=== PATIENT | male | born 1965 | race American Indian/Alaskan Native ===

== ENCOUNTER 2021-08-09 01:00 | Inpatient (IN) | payer SELFPAY ==
[2021-08-09] MEDS ORDERED: ONDANSETRON 4 MG/2 ML INJ IV ONE (02:27)
[2021-08-09] MEDS ORDERED: FAMOTIDINE 20 MG/2 ML INJ IV ONE (02:27)
[2021-08-09] MEDS ORDERED: MORPHINE 4 MG/1 ML INJ IV ONE (02:27)
[2021-08-09] MEDS ORDERED: THIAMINE 100 MG, FOLIC ACID 1 MG, MULTIPLE VITAMIN INJ, ADULT 10 ML in SODIUM CHLORIDE ... IV ONE (02:28)
[2021-08-09] MEDS ORDERED: SODIUM CHLORIDE 0.9% 1000 ML 1,000 ML ONE (02:32)
--- NOTE | 2021-08-09 02:32 | Emergency Department Report ---
ED Abdominal Pain HPI - General Chief Complaint: Alcohol Stated Complaint: ALCOHOL WITHDRAWAL Time Seen by Provider: 08/09/21 02:06 Source: EMS Mode of arrival: Stretcher Limitations: No Limitations - History of Present Illness Initial Comments: 55-year-old male with a past medical history hypertension and alcohol abuse presents to the hospital with complaints of "alcohol withdrawal symptoms." Patient states he drinks a half a gallon of vodka daily with last drink at 3 AM. Patient states his symptoms of "alcohol withdrawal" is the nausea, vomiting, p.o. intolerance, generalized abdominal pain, and bad heartburn. Patient denies previous history of pancreatitis or abdominal surgeries. Pain is moderate to severe, constant, worse with palpation - Related Data Previous Rx's Medication Instructions Recorded Last Taken Type Mag Hydrox/Aluminum Hyd/Simeth 20 ml PO QID PRN #1 bottle 08/09/21 Unknown Rx [Maalox Advanced Suspension] Multivitamin with Folic Acid 400 mcg PO DAILY #30 tablet 08/09/21 Unknown Rx [Daily-Sam Tablet] Ondansetron [Zofran Odt] 4 mg PO Q8HR PRN #20 tab.rapdis 08/09/21 Unknown Rx Pantoprazole [Protonix] 40 mg PO QDAY #30 tablet 08/09/21 Unknown Rx Allergies Allergy/AdvReac Type Severity Reaction Status Date / Time No Known Allergies Allergy Verified 08/09/21 02:00 ED Review of Systems ROS: Stated complaint: ALCOHOL WITHDRAWAL Other details as noted in HPI Comment: All other systems reviewed and negative ED Past Medical Hx - Past Medical History Previous Medical History?: Yes Hx Hypertension: Yes Hx Seizures: Yes Additional medical history: alcohol abuse - Medications Home Medications: Home Medications Medication Instructions Recorded Confirmed Last Taken Type Mag Hydrox/Aluminum Hyd/Simeth 20 ml PO QID PRN #1 bottle 08/09/21 Unknown Rx [Maalox Advanced Suspension] Multivitamin with Folic Acid 400 mcg PO DAILY #30 tablet 08/09/21 Unknown Rx [Daily-Sam Tablet] Ondansetron [Zofran Odt] 4 mg PO Q8HR PRN #20 tab.rapdis 08/09/21 Unknown Rx Pantoprazole [Protonix] 40 mg PO QDAY #30 tablet 08/09/21 Unknown Rx ED Physical Exam - General Limitations: No Limitations - Other Other exam information: General: No acute distress Head: Atraumatic Eyes: normal appearance ENT: Moist mucous membranes Neck: Normal appearance, no midline tenderness Chest: Clear to auscultation bilaterally CV: Regular rate and rhythm Abdomen: Soft, normal bowel sounds, generalized abdominal tenderness greatest in epigastric area. No rebound or guarding Back: Normal inspection Extremity: Normal inspection, full range of motion Neuro: Alert but patient appears mildly sedated with mild slurring of his words, O x 3, no facial asymmetry, no gross motor sensory deficit, no tremors noted Psych: Appropriate behavior Skin: No rash ED Course Vital Signs 08/09/21 08/09/21 02:02 02:45 Temperature 98.1 F Pulse Rate 82 Respiratory 18 20 Rate Blood Pressure 162/90 [Left] O2 Sat by Pulse 99 Oximetry - Reevaluation(s) Reevaluation #1: 08/09/21 02:31 Based on patient's clinical presentation I do not suspect acute alcohol withdr awal. Does not have currently have tremors or tachycardia. Patient is at risk for alcohol withdrawal. He appears sedated therefore will check alcohol level in ED and work-up abdominal pain/nausea vomiting symptoms ED Medical Decision Making - Lab Data Result diagrams: 08/09/21 03:05 08/09/21 03:05 Lab Results 08/09/21 08/09/21 08/09/21 Range/Units 03:05 03:05 03:05 WBC 7.3 (4.5-11.0) K/mm3 RBC 5.39 H (3.65-5.03) M/mm3 Hgb 15.3 H (11.8-15.2) gm/dl Hct 47.6 H (35.5-45.6) % MCV 88 (84-94) fl MCH 28 (28-32) pg MCHC 32 (32-34) % RDW 15.8 H (13.2-15.2) % Plt Count 152 (140-440) K/mm3 Lymph % (Auto) 18.4 (13.4-35.0) % [place] % (Auto) 8.9 H (0.0-7.3) % Eos % (Auto) 0.0 (0.0-4.3) % Baso % (Auto) 1.8 (0.0-1.8) % Lymph # (Auto) 1.3 (1.2-5.4) K/mm3 [place] # (Auto) 0.6 (0.0-0.8) K/mm3 Eos # (Auto) 0.0 (0.0-0.4) K/mm3 Baso # (Auto) 0.1 (0.0-0.1) K/mm3 Seg Neutrophils % 70.9 H (40.0-70.0) % Seg Neutrophils # 5.2 (1.8-7.7) K/mm3 Sodium 138 (137-145) mmol/L Potassium 3.0 L (3.6-5.0) mmol/L Chloride 92.7 L (98-107) mmol/L Carbon Dioxide 26 (22-30) mmol/L Anion Gap 22 mmol/L BUN 9 (9-20) mg/dL Creatinine 0.7 L (0.8-1.3) mg/dL Estimated GFR > 60 ml/min BUN/Creatinine Ratio 13 % Glucose 116 H (75-100) mg/dL Calcium 8.6 (8.4-10.2) mg/dL Magnesium 1.60 L (1.7-2.3) mg/dL Total Bilirubin 0.40 (0.1-1.2) mg/dL AST 164 H (5-40) units/L ALT 86 H (7-56) units/L Alkaline Phosphatase 144 H (35-129) units/L Total Protein 7.2 (6.3-8.2) g/dL Albumin 4.0 (3.9-5) g/dL Albumin/Globulin Ratio 1.3 % Lipase 87 H (13-60) units/L Plasma/Serum Alcohol 0.29 H (0-0.07) % - Radiology Data Radiology results: report reviewed CHEST 1 VIEW 08/09/2021 2:16 AM INDICATION / CLINICAL INFORMATION: vomiting, mild hypoxia. COMPARISON: None available. FINDINGS: SUPPORT DEVICES: None. HEART / MEDIASTINUM: Normal size of the cardiac silhouette. A right perihilar node/nodule measures 1.4 x 1.4 cm. LUNGS / PLEURA: Right perihilar node/nodule as above with otherwise clear lungs. No significant pleural effusion. No pneumothorax. ADDITIONAL FINDINGS: No significant additional findings. IMPRESSION: 1. No acute abnormality of the chest. 2. Right perihilar node/nodule as above. A CT abdomen and pelvis is pending that should include this finding. CT ABDOMEN AND PELVIS WITH CONTRAST INDICATION / CLINICAL INFORMATION: Pt complains of abdominal pain with N/V. Pt is an Alcoholic. TECHNIQUE: Axial CT images were obtained through the abdomen and pelvis after 100 cc Omnipaque [address] scans at this location are performed using CT dose reduction for ALARA by means of automated exposure control. COMPARISON: None available. FINDINGS: LOWER CHEST: There is an uncomplicated moderate hiatal hernia with moderate thickening of the distal esophagus. No other significant abnormality. LIVER: There is generalized steatosis without other significant abnormalities. BILIARY: The gallbladder is unremarkable. No biliary ductal dilatation. PANCREAS: No significant abnormality. SPLEEN: No significant abnormality. ADRENALS: No significant abnormality. KIDNEYS / URETERS: There is a 4.6 mm nonobstructive mid pole left renal stone. No other significant abnormality. GI TRACT: No other significant abnormality of the stomach. No significant abnormality of the small bowel. No significant abnormality of the colon. PERITONEUM: No free fluid. No free air. No fluid collection. LYMPH NODES: No significant adenopathy. VASCULATURE: There is moderate atherosclerosis without other significant abnormalities. URINARY BLADDER: Well-distended without acute findings. REPRODUCTIVE ORGANS: No significant abnormality. ADDITIONAL FINDINGS: None. BONES: No acute findings. There is unremarkable appearing internal fixation of the left hemipelvis. IMPRESSION: 1. Nonspecific moderate thickening of the distal esophagus with an uncomplicated moderate hiatal hernia. Esophagitis, possibly secondary to reflux, is a consideration. 2. No other acute findings. 3. Additional findings as above. - Medical Decision Making 55-year old male presents the hospital planing of alcohol withdrawal however he is actually acutely intoxicated with nausea vomiting. Patient symptoms are likely secondary to alcohol induced gastritis/esophagitis. Esophagitis noted on CAT scan and patient endorses bad GERD symptoms. Patient has mild hypokalemia and hypomagnesemia which was supplemented in the ED. Patient treated symptomatically with pain medication, nausea medication, and received a banana bag. I Anticipate patient will be discharged with symptomatic treatment however, patient will need reassessment and therefore signed out to Dr. Leung Critical Care Time: No Critical care attestation.: If time is entered above; I have spent that time in minutes in the direct care of this critically ill patient, excluding procedure time. ED Disposition Clinical Impression: Acute alcohol intoxication, Esophagitis, Nausea & vomiting, Hypokalemia, Hypomagnesemia Disposition: 01 HOME / SELF CARE / HOMELESS Is pt being admited?: No Does the pt Need Aspirin: No Condition: Stable Instructions: Esophagitis, Nausea and Vomiting, Adult, Alcohol Abuse and Dependence Information, Adult Additional Instructions: Take the medication as prescribed. Follow-up with your doctor or doctor/clinic provided. Return if symptoms worsen as indicated by your discharge instructions. Prescriptions: Multivitamin with Folic Acid [Daily-Sam Tablet] 400 mcg PO DAILY #30 tablet Mag Hydrox/Aluminum Hyd/Simeth [Maalox Advanced Suspension] 20 ml PO QID PRN #1 bottle PRN Reason: Indigestion Pantoprazole [Protonix] 40 mg PO QDAY #30 tablet Ondansetron [Zofran Odt] 4 mg PO Q8HR PRN #20 tab.rapdis PRN Reason: Nausea And Vomiting Referrals: MD evelia referral [Other] - 3-5 Days (For help with alcohol detox) [facility] [Provider Group] - 3-5 Days ANISA MARTINEZ MD [Staff Physician] - 3-5 Days (GI doctor)
[2021-08-09 03:22] LABS: Basophils # (Auto) 0.1 K/mm3 (0.0-0.1); Basophils % (Auto) 1.8 % (0.0-1.8); Hematocrit 47.6 % (35.5-45.6); Hemoglobin 15.3 gm/dl (11.8-15.2); Lymphocytes # (Auto) 1.3 K/mm3 (1.2-5.4); Lymphocytes % (Auto) 18.4 % (13.4-35.0); Mean Corpuscular HGB Conc 32 % (32-34); Mean Corpuscular Volume 88 fl (84-94); Monocytes # (Auto) 0.6 K/mm3 (0.0-0.8); Monocytes % (Auto) 8.9 % (0.0-7.3); Red Blood Count 5.39 M/mm3 (3.65-5.03); Red Cell Distribution Width 15.8 % (13.2-15.2)
--- NOTE | 2021-08-09 03:27 | XRay Report ---
CHEST 1 VIEW 08/09/2021 2:16 AM INDICATION / CLINICAL INFORMATION: vomiting, mild hypoxia. COMPARISON: None available. FINDINGS: SUPPORT DEVICES: None. HEART / MEDIASTINUM: Normal size of the cardiac silhouette. A right perihilar node/nodule measures 1. 4 x 1.4 cm. LUNGS / PLEURA: Right perihilar node/nodule as above with otherwise clear lungs. No significant pleur al effusion. No pneumothorax. ADDITIONAL FINDINGS: No significant additional findings. IMPRESSION: 1. No acute abnormality of the chest. 2. Right perihilar node/nodule as above. A CT abdomen and pelvis is pending that should include this finding. Signer Name: Matty Badillo MD Signed: 08/09/2021 3:23 AM Workstation Name: [id number]
[2021-08-09 03:29] LABS: Platelet Count 152 K/mm3 (140-440)
[2021-08-09 03:41] LABS: Alanine Aminotransferase 86 units/L (7-56); Blood Urea Nitrogen 9 mg/dL (9-20); Calcium 8.6 mg/dL (8.4-10.2); Hemolysis Index 23
[2021-08-09 03:42] LABS: BUN/Creatinine Ratio 13
[2021-08-09] MEDS ORDERED: MAGNESIUM SULFATE 2 GM/50 ML BAG IV ONE (04:37)
--- NOTE | 2021-08-09 05:12 | Cat Scan Report ---
CT ABDOMEN AND PELVIS WITH CONTRAST INDICATION / CLINICAL INFORMATION: Pt complains of abdominal pain with N/V. Pt is an Alcoholic. TECHNIQUE: Axial CT images were obtained through the abdomen and pelvis after 100 cc Omnipaque [address] scans at this location are performed using CT dose reduction for ALARA by means of automated exposure control. COMPARISON: None available. FINDINGS: LOWER CHEST: There is an uncomplicated moderate hiatal hernia with moderate thickening of the distal esophagus. No other significant abnormality. LIVER: There is generalized steatosis without other significant abnormalities. BILIARY: The gallbladder is unremarkable. No biliary ductal dilatation. PANCREAS: No significant abnormality. SPLEEN: No significant abnormality. ADRENALS: No significant abnormality. KIDNEYS / URETERS: There is a 4.6 mm nonobstructive mid pole left renal stone. No other significant a bnormality. GI TRACT: No other significant abnormality of the stomach. No significant abnormality of the small [place] wel. No significant abnormality of the colon. PERITONEUM: No free fluid. No free air. No fluid collection. LYMPH NODES: No significant adenopathy. VASCULATURE: There is moderate atherosclerosis without other significant abnormalities. URINARY BLADDER: Well-distended without acute findings. REPRODUCTIVE ORGANS: No significant abnormality. ADDITIONAL FINDINGS: None. BONES: No acute findings. There is unremarkable appearing internal fixation of the left hemipelvis. IMPRESSION: 1. Nonspecific moderate thickening of the distal esophagus with an uncomplicated moderate hiatal [place] ia. Esophagitis, possibly secondary to reflux, is a consideration. 2. No other acute findings. 3. Additional findings as above. Signer Name: Matty Badillo MD Signed: 08/09/2021 5:07 AM Workstation Name: [id number]
[2021-08-09] MEDS ORDERED: POTASSIUM CHLORIDE ER 20 MEQ TAB PO ONE ×2 (05:13→17:34)
--- NOTE | 2021-08-09 06:06 | Emergency Department Report ---
Blank Doc - Documentation Documentation: 599- 0.29. Recheck when sober. Patient is now in withdrawal and will be admitted.
[2021-08-09] MEDS ORDERED: PANTOPRAZOLE 40 MG TAB PO ONE (06:16)
[2021-08-09] MEDS ORDERED: NALOXONE 0.4 MG/1 ML INJ IV PRN (10:00)
[2021-08-09] MEDS ORDERED: ACETAMINOPHEN 325 MG TAB PO PRN (10:00)
[2021-08-09] MEDS ORDERED: HALOPERIDOL LACTATE 5 MG/1 ML INJ IV PRN (10:00)
[2021-08-09] MEDS ORDERED: MORPHINE 4 MG/1 ML INJ IV PRN (10:00)
[2021-08-09] MEDS ORDERED: ONDANSETRON 4 MG/2 ML INJ IV PRN (10:00)
[2021-08-09] MEDS: LORazepam 2 MG/ML VIAL IV PRN ×4 (10:11→22:18)
[2021-08-09 10:20] LABS: Bilirubin,Urine NEG (Negative); Blood,Urine SM (Negative); Color,Urine Yellow (Yellow); Mucus,Urine FEW /HPF; Protein,Urine <15 mg/dL mg/dL (Negative); Urobilinogen,Urine < 2.0 mg/dL (<2.0)
[2021-08-09 10:51] LABS: Amphetamine Screen,Urine Negative; Benzodiazepines Screen,Urine Negative; Cannabinoid Screen,Urine Negative; Cocaine Screen,Urine Negative; Methadone Screen,Urine Negative; Opiate Screen,Urine Negative
--- NOTE | 2021-08-09 11:50 | History and Physical Report ---
History of Present Illness Date of examination: 08/09/21 Date of admission: 08/09/21 09:10 Chief complaint: Alcohol withdrawal History of present illness: Patient is 55-year-old male history of alcohol dependence who reported to the emergency department with complaint of alcohol withdrawal. He reports his last drink was almost 5 days ago and he has been experiencing the "shakes". This is typical of his withdrawal. He reports at most being alcohol free for 4 months. At this time he is motivated to quit drinking. He currently drinks about half a gallon of liquor daily. Past History Past Medical History: GERD Past Surgical History: Other (Jaw surgery) Social history: smoking (1 pack/day), alcohol abuse (Half a gallon of liquor, 40-year use) Family history: no significant family history Medications and Allergies Allergies Allergy/AdvReac Type Severity Reaction Status Date / Time No Known Allergies Allergy Verified 08/09/21 10:48 Home Medications Medication Instructions Recorded Confirmed Last Taken Type Mag Hydrox/Aluminum Hyd/Simeth 20 ml PO QID PRN #1 bottle 08/09/21 Unknown Rx [Maalox Advanced Suspension] Multivitamin with Folic Acid 400 mcg PO DAILY #30 tablet 08/09/21 Unknown Rx [Daily-Sam Tablet] Ondansetron [Zofran Odt] 4 mg PO Q8HR PRN #20 tab.rapdis 08/09/21 Unknown Rx Pantoprazole [Protonix] 40 mg PO QDAY #30 tablet 08/09/21 Unknown Rx Active Meds: Active Medications Acetaminophen (Acetaminophen 325 Mg Tab) 650 mg PO Q4H PRN PRN Reason: Pain MILD(1-3)/Fever >100.5/WELCH Haloperidol Lactate (Haloperidol Lactate 5 Mg/1 Ml Inj) 5 mg IV Q1H PRN PRN Reason: Unrespon. to mult. doses BZD's Lorazepam (Lorazepam 2 Mg/Ml Vial) 2 mg IV Q1H PRN PRN Reason: MIKE-Xavi 8-15 Last Admin: 08/09/21 10:11 Dose: 2 mg Documented by: Lorazepam (Lorazepam 2 Mg/Ml Vial) 4 mg IV Q1H PRN PRN Reason: CIJOSEFA-Xavi 16-25 Morphine Sulfate (Morphine 4 Mg/1 Ml Inj) 4 mg IV Q4H PRN PRN Reason: Pain , Severe (7-10) Naloxone HCl (Naloxone 0.4 Mg/1 Ml Inj) 0.1 mg IV Q2MIN PRN PRN Reason: Res Rate </= 8 or 02 SAT < 92% Ondansetron HCl (Ondansetron 4 Mg/2 Ml Inj) 4 mg IV Q8H PRN PRN Reason: Nausea And Vomiting Last Admin: 08/09/21 10:13 Dose: 4 mg Documented by: Oxycodone/Acetaminophen (Oxycodone /Acetaminophen 5-325mg Tab) 1 tab PO Q6H PRN PRN Reason: Pain, Moderate (4-6) Sodium Chloride (Sodium Chloride 0.9% 10 Ml Flush Syringe) 10 ml IV BID JEANNE Last Admin: 08/09/21 10:49 Dose: 10 ml Documented by: Sodium Chloride (Sodium Chloride 0.9% 10 Ml Flush Syringe) 10 ml IV PRN PRN PRN Reason: LINE FLUSH Exam - Physical Exam Narrative exam: GENERAL: Well-developed well-nourished. Sitting on the side of the bed in no acute distress. HEENT: Normocephalic. Atraumatic. NECK: Supple. CHEST/LUNGS: CTAB on room air HEART/CARDIOVASCULAR: RRR. No murmur, rubs or gallops appreciated. ABDOMEN: +BS. NT/ND. SKIN: No rashes noted. NEURO: No focal motor deficit. Follows all commands and is ambulatory. MUSCULOSKELETAL: No joint effusion EXTREMITIES: No cyanosis, cubbing or edema. PSYCH: Cooperative. - Constitutional Vitals: Temp Pulse Resp BP Pulse Ox 98.4 F 74 16 133/77 88 08/09/21 04:02 08/09/21 10:43 08/09/21 10:43 08/09/21 10:50 08/09/21 10:50 Results - Labs CBC & Chem 7: 08/09/21 03:05 08/09/21 03:05 Labs: Laboratory Last Values WBC 7.3 K/mm3 (4.5-11.0) 08/09/21 03:05 RBC 5.39 M/mm3 (3.65-5.03) H 08/09/21 03:05 Hgb 15.3 gm/dl (11.8-15.2) H 08/09/21 03:05 Hct 47.6 % (35.5-45.6) H 08/09/21 03:05 MCV 88 fl (84-94) 08/09/21 03:05 MCH 28 pg (28-32) 08/09/21 03:05 MCHC 32 % (32-34) 08/09/21 03:05 RDW 15.8 % (13.2-15.2) H 08/09/21 03:05 Plt Count 152 K/mm3 (140-440) 08/09/21 03:05 Lymph % (Auto) 18.4 % (13.4-35.0) 08/09/21 03:05 [place] % (Auto) 8.9 % (0.0-7.3) H 08/09/21 03:05 Eos % (Auto) 0.0 % (0.0-4.3) 08/09/21 03:05 Baso % (Auto) 1.8 % (0.0-1.8) 08/09/21 03:05 Lymph # (Auto) 1.3 K/mm3 (1.2-5.4) 08/09/21 03:05 [place] # (Auto) 0.6 K/mm3 (0.0-0.8) 08/09/21 03:05 Eos # (Auto) 0.0 K/mm3 (0.0-0.4) 08/09/21 03:05 Baso # (Auto) 0.1 K/mm3 (0.0-0.1) 08/09/21 03:05 Seg Neutrophils % 70.9 % (40.0-70.0) H 08/09/21 03:05 Seg Neutrophils # 5.2 K/mm3 (1.8-7.7) 08/09/21 03:05 Sodium 138 mmol/L (137-145) 08/09/21 03:05 Potassium 3.0 mmol/L (3.6-5.0) L 08/09/21 03:05 Chloride 92.7 mmol/L (98-107) L 08/09/21 03:05 Carbon Dioxide 26 mmol/L (22-30) 08/09/21 03:05 Anion Gap 22 mmol/L 08/09/21 03:05 BUN 9 mg/dL (9-20) 08/09/21 03:05 Creatinine 0.7 mg/dL (0.8-1.3) L 08/09/21 03:05 Estimated GFR > 60 ml/min 08/09/21 03:05 BUN/Creatinine Ratio 13 % 08/09/21 03:05 Glucose 116 mg/dL (75-100) H 08/09/21 03:05 Calcium 8.6 mg/dL (8.4-10.2) 08/09/21 03:05 Phosphorus 3.40 mg/dL (2.5-4.5) 08/09/21 09:35 Magnesium 1.60 mg/dL (1.7-2.3) L 08/09/21 03:05 Total Bilirubin 0.40 mg/dL (0.1-1.2) 08/09/21 03:05 AST 164 units/L (5-40) H 08/09/21 03:05 ALT 86 units/L (7-56) H 08/09/21 03:05 Alkaline Phosphatase 144 units/L (35-129) H 08/09/21 03:05 Ammonia 28.0 umol/L (25-60) 08/09/21 09:35 Total Protein 7.2 g/dL (6.3-8.2) 08/09/21 03:05 Albumin 4.0 g/dL (3.9-5) 08/09/21 03:05 Albumin/Globulin Ratio 1.3 % 08/09/21 03:05 Lipase 87 units/L (13-60) H 08/09/21 03:05 Urine Color Yellow (Yellow) 08/09/21 09:00 Urine Turbidity Clear (Clear) 08/09/21 09:00 Urine pH 7.0 (5.0-7.0) 08/09/21 09:00 Ur Specific Reading 1.020 (1.003-1.030) 08/09/21 09:00 Urine Protein <15 mg/dl mg/dL (Negative) 08/09/21 09:00 Urine Glucose (UA) Neg mg/dL (Negative) 08/09/21 09:00 Urine Ketones Neg mg/dL (Negative) 08/09/21 09:00 Urine Blood Sm (Negative) 08/09/21 09:00 Urine Nitrite Neg (Negative) 08/09/21 09:00 Urine Bilirubin Neg (Negative) 08/09/21 09:00 Urine Urobilinogen < 2.0 mg/dL (<2.0) 08/09/21 09:00 Ur Leukocyte Esterase Neg (Negative) 08/09/21 09:00 Urine WBC (Auto) 1.0 /HPF (0.0-6.0) 08/09/21 09:00 Urine RBC (Auto) 2.0 /HPF (0.0-6.0) 08/09/21 09:00 Urine Mucus Few /HPF 08/09/21 09:00 Urine Opiates Screen Negative 08/09/21 09:00 Urine Methadone Screen Negative 08/09/21 09:00 Ur Barbiturates Screen Negative 08/09/21 09:00 Ur Phencyclidine Scrn Negative 08/09/21 09:00 Ur Amphetamines Screen Negative 08/09/21 09:00 U Benzodiazepines Scrn Negative 08/09/21 09:00 Urine Cocaine Screen Negative 08/09/21 09:00 U Marijuana (THC) Screen Negative 08/09/21 09:00 Drugs of Abuse Note Disclamer 08/09/21 09:00 Plasma/Serum Alcohol 0.29 % (0-0.07) H 08/09/21 03:05 Assessment and Plan Assessment and plan: #Alcohol dependence #Alcohol withdrawal #Hypokalemia #Hypomagnesemia #History of hiatal hernia #History of GERD Advance Directives: No VTE prophylaxis?: Mechanical Contraindication Mechanical VTE Prophylaxis: Treatment Not Indicated Plan of care discussed with patient/family: Yes
[2021-08-10 07:51] LABS: Alanine Aminotransferase 59 units/L (7-56); Albumin 3.3 g/dL (3.9-5); Blood Urea Nitrogen 13 mg/dL (9-20); Calcium 7.9 mg/dL (8.4-10.2); Hemolysis Index 5
--- NOTE | 2021-08-10 08:03 | Progress Note ---
Hospitalist Physical - Constitutional Vitals: Temp Pulse Resp BP Pulse Ox 98.8 F 78 18 148/94 98 08/10/21 05:28 08/10/21 05:28 08/10/21 05:28 08/10/21 05:28 08/10/21 05:28 Results - Labs CBC & Chem 7: 08/09/21 03:05 08/10/21 07:04 Labs: Laboratory Last Values WBC 7.3 K/mm3 (4.5-11.0) 08/09/21 03:05 RBC 5.39 M/mm3 (3.65-5.03) H 08/09/21 03:05 Hgb 15.3 gm/dl (11.8-15.2) H 08/09/21 03:05 Hct 47.6 % (35.5-45.6) H 08/09/21 03:05 MCV 88 fl (84-94) 08/09/21 03:05 MCH 28 pg (28-32) 08/09/21 03:05 MCHC 32 % (32-34) 08/09/21 03:05 RDW 15.8 % (13.2-15.2) H 08/09/21 03:05 Plt Count 152 K/mm3 (140-440) 08/09/21 03:05 Lymph % (Auto) 18.4 % (13.4-35.0) 08/09/21 03:05 [place] % (Auto) 8.9 % (0.0-7.3) H 08/09/21 03:05 Eos % (Auto) 0.0 % (0.0-4.3) 08/09/21 03:05 Baso % (Auto) 1.8 % (0.0-1.8) 08/09/21 03:05 Lymph # (Auto) 1.3 K/mm3 (1.2-5.4) 08/09/21 03:05 [place] # (Auto) 0.6 K/mm3 (0.0-0.8) 08/09/21 03:05 Eos # (Auto) 0.0 K/mm3 (0.0-0.4) 08/09/21 03:05 Baso # (Auto) 0.1 K/mm3 (0.0-0.1) 08/09/21 03:05 Seg Neutrophils % 70.9 % (40.0-70.0) H 08/09/21 03:05 Seg Neutrophils # 5.2 K/mm3 (1.8-7.7) 08/09/21 03:05 Sodium 141 mmol/L (137-145) 08/10/21 07:04 Potassium 3.0 mmol/L (3.6-5.0) L 08/09/21 03:05 Chloride 101.2 mmol/L (98-107) 08/10/21 07:04 Carbon Dioxide 25 mmol/L (22-30) 08/10/21 07:04 Anion Gap 19 mmol/L 08/10/21 07:04 BUN 13 mg/dL (9-20) 08/10/21 07:04 Creatinine 0.7 mg/dL (0.8-1.3) L 08/09/21 03:05 Estimated GFR > 60 ml/min 08/09/21 03:05 BUN/Creatinine Ratio 13 % 08/09/21 03:05 Glucose 75 mg/dL (75-100) 08/10/21 07:04 Calcium 7.9 mg/dL (8.4-10.2) L 08/10/21 07:04 Phosphorus 3.40 mg/dL (2.5-4.5) 08/09/21 09:35 Magnesium 2.10 mg/dL (1.7-2.3) 08/10/21 07:04 Total Bilirubin 0.60 mg/dL (0.1-1.2) 08/10/21 07:04 AST 95 units/L (5-40) H 08/10/21 07:04 ALT 59 units/L (7-56) H 08/10/21 07:04 Alkaline Phosphatase 133 units/L (35-129) H 08/10/21 07:04 Ammonia 28.0 umol/L (25-60) 08/09/21 09:35 Total Protein 6.1 g/dL (6.3-8.2) L 08/10/21 07:04 Albumin 3.3 g/dL (3.9-5) L 08/10/21 07:04 Albumin/Globulin Ratio 1.2 % 08/10/21 07:04 Lipase 87 units/L (13-60) H 08/09/21 03:05 Urine Color Yellow (Yellow) 08/09/21 09:00 Urine Turbidity Clear (Clear) 08/09/21 09:00 Urine pH 7.0 (5.0-7.0) 08/09/21 09:00 Ur Specific [place] 1.020 (1.003-1.030) 08/09/21 09:00 Urine Protein <15 mg/dl mg/dL (Negative) 08/09/21 09:00 Urine Glucose (UA) Neg mg/dL (Negative) 08/09/21 09:00 Urine Ketones Neg mg/dL (Negative) 08/09/21 09:00 Urine Blood Sm (Negative) 08/09/21 09:00 Urine Nitrite Neg (Negative) 08/09/21 09:00 Urine Bilirubin Neg (Negative) 08/09/21 09:00 Urine Urobilinogen < 2.0 mg/dL (<2.0) 08/09/21 09:00 Ur Leukocyte Esterase Neg (Negative) 08/09/21 09:00 Urine WBC (Auto) 1.0 /HPF (0.0-6.0) 08/09/21 09:00 Urine RBC (Auto) 2.0 /HPF (0.0-6.0) 08/09/21 09:00 Urine Mucus Few /HPF 08/09/21 09:00 Urine Opiates Screen Negative 08/09/21 09:00 Urine Methadone Screen Negative 08/09/21 09:00 Ur Barbiturates Screen Negative 08/09/21 09:00 Ur Phencyclidine Scrn Negative 08/09/21 09:00 Ur Amphetamines Screen Negative 08/09/21 09:00 U Benzodiazepines Scrn Negative 08/09/21 09:00 Urine Cocaine Screen Negative 08/09/21 09:00 U Marijuana (THC) Screen Negative 08/09/21 09:00 Drugs of Abuse Note Disclamer 08/09/21 09:00 Plasma/Serum Alcohol 0.29 % (0-0.07) H 08/09/21 03:05 Garcias/IV: Voiding Method Urinal Active Medications - Current Medications Current Medications: Generic Name Dose Route Start Last Admin Trade Name Freq PRN Reason Stop Dose Admin Acetaminophen 650 mg 08/09/21 10:00 Acetaminophen 325 Mg Tab PO Q4H PRN Pain MILD(1-3)/Fever >100.5/WELCH Chlordiazepoxide HCl 10 mg 08/09/21 20:00 08/09/21 21:38 Chlordiazepoxide 5 Mg Cap PO 10 mg TID JEANNE Administration Folic Acid 1 mg 08/10/21 10:00 Folic Acid 1 Mg Tab PO QDAY JEANNE Haloperidol Lactate 5 mg 08/09/21 10:00 Haloperidol Lactate 5 Mg/1 Ml Inj IV Q1H PRN Unrespon. to mult. doses BZD's Lorazepam 2 mg 08/09/21 10:00 08/09/21 16:51 Lorazepam 2 Mg/Ml Vial IV 2 mg Q1H PRN Administration CIWA-Ar 8-15 Lorazepam 4 mg 08/09/21 10:00 08/09/21 22:18 Lorazepam 2 Mg/Ml Vial IV 4 mg Q1H PRN Administration [facility] 16-25 Morphine Sulfate 4 mg 08/09/21 10:00 Morphine 4 Mg/1 Ml Inj IV Q4H PRN Pain , Severe (7-10) Naloxone HCl 0.1 mg 08/09/21 10:00 Naloxone 0.4 Mg/1 Ml Inj IV Q2MIN PRN Res Rate </= 8 or 02 SAT < 92% Ondansetron HCl 4 mg 08/09/21 10:00 08/09/21 10:13 Ondansetron 4 Mg/2 Ml Inj IV 4 mg Q8H PRN Administration Nausea And Vomiting Oxycodone/Acetaminophen 1 tab 08/09/21 10:00 Oxycodone /Acetaminophen 5-325mg Tab PO Q6H PRN Pain, Moderate (4-6) Sodium Chloride 10 ml 08/09/21 10:00 08/09/21 21:39 Sodium Chloride 0.9% 10 Ml Flush Syringe IV 10 ml BID JEANNE Administration Sodium Chloride 10 ml 08/09/21 10:00 Sodium Chloride 0.9% 10 Ml Flush Syringe IV PRN PRN LINE FLUSH Thiamine HCl 100 mg 08/10/21 10:00 Thiamine 100 Mg Tab PO QDAY [facility]
[2021-08-10 08:25] LABS: BUN/Creatinine Ratio 19
[2021-08-10] MEDS: LORazepam 2 MG/ML VIAL IV PRN ×6 (10:15→21:13)
[2021-08-10] MEDS: FOLIC ACID 1 MG TAB PO SCH (10:17)
[2021-08-10] MEDS: THIAMINE 100 MG TAB PO SCH (10:17)
--- NOTE | 2021-08-10 11:26 | Consultation ---
History of Present Illness - Reason for Consult Consult date: 08/10/21 Reason for consult: ETOH dependence - History of Present Psychiatric Illness Ramon Loo is a 55y/o patient who presented to the ER with alcohol withdrawal. During my evaluation the patient is calm and cooperative. He is polite. He verbalizes feeling depressed. He says he drinks 1/2 gal of vodka daily. The patient says he's been to rehab in the past but it was unsuccessful. The patient says he has no family here. He says he's from [place] and that's where all of his family is. 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 The patient says he saw a psychiatrist at one point when he lived in [place]. He says he was diagnoses with depression and anxiety. He says he was diagnosed seroquel 200mg daily and Remeron 30mg nightly, but sates he's been off about a month. The patient denies SI/HI. He says he has hallucinations sometimes when he doesn't drink and has withdrawals. He denies at present. PAST PSYCHIATRIC HISTORY: Diagnose: Depression, anxiety Suicide attempts or Self-harm behavior: Denies Prior psychiatric hospitalizations: Denies Substance Abuse history: Denies Previous psychiatric medications tried: seroquel, remeron Outpatient treatment: Unknown PAST MEDICAL HISTORY: unknown Family Psychiatric History: None reported or documented SOCIAL HISTORY Marital Status: Living Arrangements: Homeless Employment Status: Disabled Access to guns/weapons: Denies Education: History of Abuse: Denies Legal History: Denies REVIEW OF SYSTEMS Constitutional: Negative for weight loss ENT: Negative for stridor Respiratory: Negative for cough or hemoptysis All other systems reviewed and are negative MENTAL STATUS EXAMINATION General Appearance and Behavior: Age appropriate, good hygiene, wearing appropriate clothes. calm, cooperative. Polite Cooperation: Cooperative Psychomotor Behavior: Psychomotor normal Mood: "depressed" Affect and affective range: restricted Thought Process: goal directed Thought Content: None Speech: normal tone and pace Suicidal Ideation: Denies Homicidal Ideation: Denies Hallucinations: Denies Delusions: None Impulse Control: Limited Insight and Judgment: Limited insight and poor judgment Memory: Limited Attention: distracted Orientation: a/o x 3 Assessment (1) Alcohol Dependence Treatment Plan Agree with CIWA Restart Remeron 15mg po qhs Restart Seroquel 100mg po qhs Start Zoloft 25mg po daily Sitter: per primary Medical: per primary Disposition: Do not recommend acute psychiatric inpatient treatment The terrazzo grinder to give the patient all necessary outpatient resources including rehab programs The patient to abstain from alcohol use Will follow for med management. Thanks. Case staffed with Dr. Carpenter Medications and Allergies Allergies Allergy/AdvReac Type Severity Reaction Status Date / Time No Known Allergies Allergy Verified 08/09/21 10:48 Home Medications Medication Instructions Recorded Confirmed Last Taken Type Mag Hydrox/Aluminum Hyd/Simeth 20 ml PO QID PRN #1 bottle 08/09/21 Unknown Rx [Maalox Advanced Suspension] Multivitamin with Folic Acid 400 mcg PO DAILY #30 tablet 08/09/21 Unknown Rx [Daily-Sam Tablet] Ondansetron [Zofran Odt] 4 mg PO Q8HR PRN #20 tab.rapdis 08/09/21 Unknown Rx Pantoprazole [Protonix] 40 mg PO QDAY #30 tablet 08/09/21 Unknown Rx Active Meds: Active Medications Acetaminophen (Acetaminophen 325 Mg Tab) 650 mg PO Q4H PRN PRN Reason: Pain MILD(1-3)/Fever >100.5/WELCH Chlordiazepoxide HCl (Chlordiazepoxide 5 Mg Cap) 10 mg PO TID [facility] Last Admin: 08/10/21 10:16 Dose: 10 mg Documented by: Folic Acid (Folic Acid 1 Mg Tab) 1 mg PO QDAY [facility] Last Admin: 08/10/21 10:17 Dose: 1 mg Documented by: Haloperidol Lactate (Haloperidol Lactate 5 Mg/1 Ml Inj) 5 mg IV Q1H PRN PRN Reason: Unrespon. to mult. doses BZD's Lorazepam (Lorazepam 2 Mg/Ml Vial) 2 mg IV Q1H PRN PRN Reason: MIKE-Ar 8-15 Last Admin: 08/10/21 10:16 Dose: 2 mg Documented by: Lorazepam (Lorazepam 2 Mg/Ml Vial) 4 mg IV Q1H PRN PRN Reason: CIWA-Ar 16- Last Admin: 08/09/21 22:18 Dose: 4 mg Documented by: Morphine Sulfate (Morphine 4 Mg/1 Ml Inj) 4 mg IV Q4H PRN PRN Reason: Pain , Severe (7-10) Naloxone HCl (Naloxone 0.4 Mg/1 Ml Inj) 0.1 mg IV Q2MIN PRN PRN Reason: Res Rate </= 8 or 02 SAT < 92% Ondansetron HCl (Ondansetron 4 Mg/2 Ml Inj) 4 mg IV Q8H PRN PRN Reason: Nausea And Vomiting Last Admin: 08/09/21 10:13 Dose: 4 mg Documented by: Oxycodone/Acetaminophen (Oxycodone /Acetaminophen 5-325mg Tab) 1 tab PO Q6H PRN PRN Reason: Pain, Moderate (4-6) Sodium Chloride (Sodium Chloride 0.9% 10 Ml Flush Syringe) 10 ml IV BID [facility] Last Admin: 08/10/21 10:18 Dose: 10 ml Documented by: Sodium Chloride (Sodium Chloride 0.9% 10 Ml Flush Syringe) 10 ml IV PRN PRN PRN Reason: LINE FLUSH Thiamine HCl (Thiamine 100 Mg Tab) 100 mg PO QDAY [facility] Last Admin: 08/10/21 10:17 Dose: 100 mg Documented by: Mental Status Exam - Vital signs Last Vital Signs Temp 98.8 F 08/10/21 05:28 Pulse 78 08/10/21 05:28 Resp 18 08/10/21 05:28 BP 148/94 08/10/21 05:28 Pulse Ox 98 08/10/21 05:28 Results Result Diagrams: 08/09/21 03:05 08/10/21 07:04 Abnormal lab results 08/10/21 Range/Units 07:04 Creatinine 0.7 L (0.8-1.3) mg/dL Calcium 7.9 L (8.4-10.2) mg/dL AST 95 H (5-40) units/L ALT 59 H (7-56) units/L Alkaline Phosphatase 133 H (35-129) units/L Total Protein 6.1 L (6.3-8.2) g/dL Albumin 3.3 L (3.9-5) g/dL All other labs normal.
--- NOTE | 2021-08-10 13:07 | Progress Note ---
Assessment and Plan Assessment and plan: #Alcohol dependence #Alcohol withdrawal #Hypokalemia #Hypomagnesemia #History of hiatal hernia #History of GERD Disposition Plan: Home/self-care History Interval history: No acute vents overnight. Patient reports feeling better but continues to have tremors. Tremors improved with Ativan and Librium. Complains of chronic lower back and leg pain. Hospitalist Physical - Physical exam Narrative exam: GENERAL: Well-developed well-nourished. Lying in bed in no acute distress. HEENT: Mild head tremor CHEST/LUNGS: CTAB on room air HEART/CARDIOVASCULAR: RRR. No murmur, rubs or gallops appreciated. ABDOMEN: +BS. NT/ND. NEURO: No focal motor deficit. Follows all commands. Tremor appreciated with movement of upper extremities. EXTREMITIES: No cyanosis, clubbing or edema. PSYCH: Cooperative. - Constitutional Vitals: Temp Pulse Resp BP Pulse Ox 98.8 F 78 18 148/94 98 08/10/21 05:28 08/10/21 05:28 08/10/21 05:28 08/10/21 05:28 08/10/21 05:28 Results - Labs CBC & Chem 7: 08/09/21 03:05 08/10/21 07:04 Labs: Laboratory Last Values WBC 7.3 K/mm3 (4.5-11.0) 08/09/21 03:05 RBC 5.39 M/mm3 (3.65-5.03) H 08/09/21 03:05 Hgb 15.3 gm/dl (11.8-15.2) H 08/09/21 03:05 Hct 47.6 % (35.5-45.6) H 08/09/21 03:05 MCV 88 fl (84-94) 08/09/21 03:05 MCH 28 pg (28-32) 08/09/21 03:05 MCHC 32 % (32-34) 08/09/21 03:05 RDW 15.8 % (13.2-15.2) H 08/09/21 03:05 Plt Count 152 K/mm3 (140-440) 08/09/21 03:05 Lymph % (Auto) 18.4 % (13.4-35.0) 08/09/21 03:05 Haines % (Auto) 8.9 % (0.0-7.3) H 08/09/21 03:05 Eos % (Auto) 0.0 % (0.0-4.3) 08/09/21 03:05 Baso % (Auto) 1.8 % (0.0-1.8) 08/09/21 03:05 Lymph # (Auto) 1.3 K/mm3 (1.2-5.4) 08/09/21 03:05 Haines # (Auto) 0.6 K/mm3 (0.0-0.8) 08/09/21 03:05 Eos # (Auto) 0.0 K/mm3 (0.0-0.4) 08/09/21 03:05 Baso # (Auto) 0.1 K/mm3 (0.0-0.1) 08/09/21 03:05 Seg Neutrophils % 70.9 % (40.0-70.0) H 08/09/21 03:05 Seg Neutrophils # 5.2 K/mm3 (1.8-7.7) 08/09/21 03:05 Sodium 141 mmol/L (137-145) 08/10/21 07:04 Potassium 3.8 mmol/L (3.6-5.0) D 08/10/21 07:04 Chloride 101.2 mmol/L (98-107) 08/10/21 07:04 Carbon Dioxide 25 mmol/L (22-30) 08/10/21 07:04 Anion Gap 19 mmol/L 08/10/21 07:04 BUN 13 mg/dL (9-20) 08/10/21 07:04 Creatinine 0.7 mg/dL (0.8-1.3) L 08/10/21 07:04 Estimated GFR > 60 ml/min 08/10/21 07:04 BUN/Creatinine Ratio 19 % 08/10/21 07:04 Glucose 75 mg/dL (75-100) 08/10/21 07:04 Calcium 7.9 mg/dL (8.4-10.2) L 08/10/21 07:04 Phosphorus 3.40 mg/dL (2.5-4.5) 08/09/21 09:35 Magnesium 2.10 mg/dL (1.7-2.3) 08/10/21 07:04 Total Bilirubin 0.60 mg/dL (0.1-1.2) 08/10/21 07:04 AST 95 units/L (5-40) H 08/10/21 07:04 ALT 59 units/L (7-56) H 08/10/21 07:04 Alkaline Phosphatase 133 units/L (35-129) H 08/10/21 07:04 Ammonia 28.0 umol/L (25-60) 08/09/21 09:35 Total Protein 6.1 g/dL (6.3-8.2) L 08/10/21 07:04 Albumin 3.3 g/dL (3.9-5) L 08/10/21 07:04 Albumin/Globulin Ratio 1.2 % 08/10/21 07:04 Lipase 87 units/L (13-60) H 08/09/21 03:05 Urine Color Yellow (Yellow) 08/09/21 09:00 Urine Turbidity Clear (Clear) 08/09/21 09:00 Urine pH 7.0 (5.0-7.0) 08/09/21 09:00 Ur Specific Crawford 1.020 (1.003-1.030) 08/09/21 09:00 Urine Protein <15 mg/dl mg/dL (Negative) 08/09/21 09:00 Urine Glucose (UA) Neg mg/dL (Negative) 08/09/21 09:00 Urine Ketones Neg mg/dL (Negative) 08/09/21 09:00 Urine Blood Sm (Negative) 08/09/21 09:00 Urine Nitrite Neg (Negative) 08/09/21 09:00 Urine Bilirubin Neg (Negative) 08/09/21 09:00 Urine Urobilinogen < 2.0 mg/dL (<2.0) 08/09/21 09:00 Ur Leukocyte Esterase Neg (Negative) 08/09/21 09:00 Urine WBC (Auto) 1.0 /HPF (0.0-6.0) 08/09/21 09:00 Urine RBC (Auto) 2.0 /HPF (0.0-6.0) 08/09/21 09:00 Urine Mucus Few /HPF 08/09/21 09:00 Urine Opiates Screen Negative 08/09/21 09:00 Urine Methadone Screen Negative 08/09/21 09:00 Ur Barbiturates Screen Negative 08/09/21 09:00 Ur Phencyclidine Scrn Negative 08/09/21 09:00 Ur Amphetamines Screen Negative 08/09/21 09:00 U Benzodiazepines Scrn Negative 08/09/21 09:00 Urine Cocaine Screen Negative 08/09/21 09:00 U Marijuana (THC) Screen Negative 08/09/21 09:00 Drugs of Abuse Note Disclamer 08/09/21 09:00 Plasma/Serum Alcohol 0.29 % (0-0.07) H 08/09/21 03:05 Garcias/IV: Voiding Method Urinal Active Medications - Current Medications Current Medications: Generic Name Dose Route Start Last Admin Trade Name Freq PRN Reason Stop Dose Admin Acetaminophen 650 mg 08/09/21 10:00 Acetaminophen 325 Mg Tab PO Q4H PRN Pain MILD(1-3)/Fever >100.5/WELCH Chlordiazepoxide HCl 10 mg 08/09/21 20:00 08/10/21 10:16 Chlordiazepoxide 5 Mg Cap PO 10 mg TID JEANNE Administration Folic Acid 1 mg 08/10/21 10:00 08/10/21 10:17 Folic Acid 1 Mg Tab PO 1 mg QDAY JEANNE Administration Haloperidol Lactate 5 mg 08/09/21 10:00 Haloperidol Lactate 5 Mg/1 Ml Inj IV Q1H PRN Unrespon. to mult. doses BZD's Lorazepam 2 mg 08/09/21 10:00 08/10/21 10:16 Lorazepam 2 Mg/Ml Vial IV 2 mg Q1H PRN Administration CIWA-Ar 8-15 Lorazepam 4 mg 08/09/21 10:00 08/09/21 22:18 Lorazepam 2 Mg/Ml Vial IV 4 mg Q1H PRN Administration CIWA-Ar 16-25 Mirtazapine 15 mg 08/10/21 22:00 Mirtazapine 15 Mg Tab PO QHS JEANNE Morphine Sulfate 4 mg 08/09/21 10:00 Morphine 4 Mg/1 Ml Inj IV Q4H PRN Pain , Severe (7-10) Naloxone HCl 0.1 mg 08/09/21 10:00 Naloxone 0.4 Mg/1 Ml Inj IV Q2MIN PRN Res Rate </= 8 or 02 SAT < 92% Ondansetron HCl 4 mg 08/09/21 10:00 08/09/21 10:13 Ondansetron 4 Mg/2 Ml Inj IV 4 mg Q8H PRN Administration Nausea And Vomiting Oxycodone/Acetaminophen 1 tab 08/09/21 10:00 Oxycodone /Acetaminophen 5-325mg Tab PO Q6H PRN Pain, Moderate (4-6) Quetiapine Fumarate 100 mg 08/10/21 22:00 Quetiapine 100 Mg Tab PO QHS JEANNE Sertraline HCl 25 mg 08/11/21 11:31 Sertraline 25 Mg Tab PO QDAY JEANNE Sodium Chloride 10 ml 08/09/21 10:00 08/10/21 10:18 Sodium Chloride 0.9% 10 Ml Flush Syringe IV 10 ml BID JEANNE Administration Sodium Chloride 10 ml 08/09/21 10:00 Sodium Chloride 0.9% 10 Ml Flush Syringe IV PRN PRN LINE FLUSH Thiamine HCl 100 mg 08/10/21 10:00 08/10/21 10:17 Thiamine 100 Mg Tab PO 100 mg QDAY JEANNE Administration
[2021-08-10] MEDS: MIRTAZAPINE 15 MG TAB PO SCH (21:12)
[2021-08-10] MEDS: QUEtiapine 100 MG TAB PO SCH (21:12)
[2021-08-11] MEDS: LORazepam 2 MG/ML VIAL IV PRN ×7 (02:06→23:54)
[2021-08-11] MEDS: NICOTINE 21 MG/24 HR PATCH TD SCH (08:59)
[2021-08-11] MEDS: THIAMINE 100 MG TAB PO SCH (08:59)
[2021-08-11] MEDS: FOLIC ACID 1 MG TAB PO SCH (08:59)
[2021-08-11] MEDS: SERTRALINE 25 MG TAB PO SCH (09:10)
--- NOTE | 2021-08-11 12:38 | Discharge Summary ---
Providers - Providers Date of Admission: 08/10/21 14:26 Attending physician: LIZETT DELUCA MD 08/09/21 17:34 Consult to Mental Health [CONS] Routine Reason For Exam: Patient interested in rehab for alcohol Primary care physician: TRUCK BRACER Hospitalization Condition: Stable Core Measure Documentation - Palliative Care Palliative Care/ Comfort Measures: Not Applicable Exam - Constitutional Vitals: Temp Pulse Resp BP Pulse Ox 97.8 F 78 18 119/77 93 08/11/21 05:18 08/11/21 05:18 08/11/21 05:18 08/11/21 05:18 08/11/21 05:18 Plan Care Plan Goals: Please establish care with a primary care doctor. You will qualify for a low- dose CT scan given your smoking history. Utilize one of the resources given to you to continue to pursue sobriety after discharge. We recommend not only do you cut back drinking, that you decrease the amount of cigarettes you smoke. Follow up with: MD evelia referral [Other] - 3-5 Days (For help with alcohol detox) [facility] [Provider Group] - 3-5 Days ANISA MARTINEZ MD [Staff Physician] - 3-5 Days (GI doctor) Prescriptions: Mirtazapine [Remeron 15mg TAB] 15 mg PO QHS 30 Days #30 tablet QUEtiapine [SEROquel] 100 mg PO QHS 30 Days #30 tablet Multivitamin with Folic Acid [Daily-Sam Tablet] 400 mcg PO DAILY #30 tablet Folic Acid [Folvite] 1 mg PO QDAY 30 Days #30 tablet Nicotine [Habitrol] 21 mg TD QDAY 30 Days #30 patch Mag Hydrox/Aluminum Hyd/Simeth [Maalox Advanced Suspension] 20 ml PO QID PRN #1 bottle PRN Reason: Indigestion Pantoprazole [Protonix] 40 mg PO QDAY #30 tablet Thiamine [Vitamin B-1] 100 mg PO QDAY 30 Days #30 tablet Ondansetron [Zofran Odt] 4 mg PO Q8HR PRN #20 tab.rapdis PRN Reason: Nausea And Vomiting Sertraline [Zoloft] 25 mg PO QDAY 30 Days #30 tablet
[2021-08-11] MEDS: oxyCODONE /ACETAMINOPHEN 5-325MG TAB PO PRN ×2 (12:41→19:58)
[2021-08-11] MEDS ORDERED: LORazepam 2 MG TAB PO ONE (17:02)
[2021-08-11] MEDS: QUEtiapine 100 MG TAB PO SCH (21:08)
[2021-08-11] MEDS: MIRTAZAPINE 15 MG TAB PO SCH (21:08)
[2021-08-11] MEDS ORDERED: LORazepam 2 MG TAB PO PRN (23:36)
[2021-08-12] MEDS: LORazepam 2 MG/ML VIAL IV PRN (07:19)
[2021-08-12] MEDS: NICOTINE 21 MG/24 HR PATCH TD SCH (09:29)
[2021-08-12] MEDS: THIAMINE 100 MG TAB PO SCH (09:29)
[2021-08-12] MEDS: FOLIC ACID 1 MG TAB PO SCH (09:29)
[2021-08-12] MEDS: SERTRALINE 25 MG TAB PO SCH (09:29)
[2021-08-12 13:39] VITALS: BP 138/84
== END 2021-08-12 10:20 | disposition home or self-care (01) | DRG 897 ==
LOC: ED 01:00 → 3A 09:10 → OBSVTOIN 08-10 14:26
PROVIDERS: ADMIT Student in an Organized Health Care Education/Training Program; ATTEND Student in an Organized Health Care Education/Training Program
DX: F10.239 Alcohol dependence with withdrawal, unspecified (principal); E87.6 Hypokalemia; E83.42 Hypomagnesemia; K20.90 Esophagitis, unspecified without bleeding
CPT/HCPCS: 36415; 71045; 74177; 80053; 80307; 80320; 81001; 82140; 83690; 83735; 84100; 85025; 99285; G0378; J3490; Q0162; G0480; J2060; J2270; J2405; J3411; J3475; J7030; Q9967

== ENCOUNTER 2021-08-18 02:35 | Emergency (ER) | payer SELFPAY ==
[2021-08-18] MEDS ORDERED: chlordiazePOXIDE 25 MG CAP PO ONE (08:03)
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
[2021-08-18 08:22] VITALS: BP 139/79
== END 2021-08-18 08:22 | disposition home or self-care (01) ==
LOC: ED 02:35
DX: F10.20 Alcohol dependence, uncomplicated (principal); I10 Essential (primary) hypertension; R56.9 Unspecified convulsions; F17.200 Nicotine dependence, unspecified, uncomplicated
CPT/HCPCS: 99283

== ENCOUNTER 2021-09-02 17:17 | Emergency (ER) | payer SELFPAY ==
[2021-09-02 19:38] LABS: Alanine Aminotransferase 42 units/L (7-56); Albumin 3.7 g/dL (3.9-5); BUN/Creatinine Ratio 21; Basophils % (Auto) 0.8 % (0.0-1.8); Blood Urea Nitrogen 17 mg/dL (9-20); Calcium 9.2 mg/dL (8.4-10.2); Eosinophils # (Auto) 0.2 K/mm3 (0.0-0.4); Eosinophils % (Auto) 2.8 % (0.0-4.3); Hematocrit 40.5 % (35.5-45.6); Hemoglobin 12.9 gm/dl (11.8-15.2); Hemolysis Index 3; Lymphocytes % (Auto) 35.3 % (13.4-35.0); Mean Corpuscular HGB Conc 32 % (32-34); Mean Corpuscular Volume 88 fl (84-94); Monocytes # (Auto) 0.4 K/mm3 (0.0-0.8); Monocytes % (Auto) 7.2 % (0.0-7.3); Platelet Count 187 K/mm3 (140-440); Red Blood Count 4.59 M/mm3 (3.65-5.03); Red Cell Distribution Width 16.9 % (13.2-15.2)
[2021-09-02 19:55] LABS: Bilirubin,Urine NEG (Negative); Blood,Urine NEG (Negative); Color,Urine Yellow (Yellow); Mucus,Urine 1+ /HPF
[2021-09-02 20:03] LABS: Amphetamine Screen,Urine Negative; Cannabinoid Screen,Urine Negative; Cocaine Screen,Urine Negative; Methadone Screen,Urine Negative; Opiate Screen,Urine Negative
[2021-09-02 20:23] LABS: Benzodiazepines Screen,Urine Positive
[2021-09-02] MEDS ORDERED: FAMOTIDINE 20 MG/2 ML INJ IV ONE (20:24)
[2021-09-02] MEDS ORDERED: LORazepam 2 MG/ML VIAL IV ONE (20:24)
[2021-09-02] MEDS ORDERED: ONDANSETRON 4 MG/2 ML INJ IV ONE (20:24)
[2021-09-02] MEDS ORDERED: THIAMINE 100 MG, FOLIC ACID 1 MG, MULTIPLE VITAMIN INJ, ADULT 10 ML in SODIUM CHLORIDE ... IV ONE (21:24)
--- NOTE | 2021-09-02 23:05 | Emergency Department Report ---
<FAYE TATE - Last Filed: 09/03/21 06:18> ED Alcohol HPI - General Chief Complaint: Medical Clearance Stated Complaint: ETOH Time Seen by Provider: 09/02/21 19:54 - Related Data Previous Rx's Medication Instructions Recorded Last Taken Type Mirtazapine [Remeron 15mg TAB] 15 mg PO QHS 30 Days #30 tablet 08/11/21 Unknown Rx Nicotine [Habitrol] 21 mg TD QDAY 30 Days #30 patch 08/11/21 Unknown Rx QUEtiapine [SEROquel] 100 mg PO QHS 30 Days #30 tablet 08/11/21 Unknown Rx Sertraline [Zoloft] 25 mg PO QDAY 30 Days #30 tablet 08/11/21 Unknown Rx Folic Acid [Folvite] 1 mg PO QDAY 30 Days #30 tablet 09/03/21 Unknown Rx Mag Hydrox/Aluminum Hyd/Simeth 20 ml PO QID PRN #1 bottle 09/03/21 Unknown Rx [Maalox Advanced Suspension] Multivitamin with Folic Acid 400 mcg PO DAILY #30 tablet 09/03/21 Unknown Rx [Daily-Sam Tablet] Ondansetron [Zofran ODT TAB] 4 mg PO Q8HR PRN #20 tab.rapdis 09/03/21 Unknown Rx Pantoprazole [Protonix TAB] 40 mg PO QDAY #30 tablet 09/03/21 Unknown Rx Thiamine [Vitamin B-1] 100 mg PO QDAY 30 Days #30 tablet 09/03/21 Unknown Rx chlordiazePOXIDE [Librium] 1 dose PO DAILY #40 cap 09/03/21 Unknown Rx Allergies Allergy/AdvReac Type Severity Reaction Status Date / Time No Known Allergies Allergy Verified 08/09/21 10:48 ED Past Medical Hx - Medications Home Medications: Home Medications Medication Instructions Recorded Confirmed Last Taken Type Mirtazapine [Remeron 15mg TAB] 15 mg PO QHS 30 Days #30 tablet 08/11/21 Unknown Rx Nicotine [Habitrol] 21 mg TD QDAY 30 Days #30 patch 08/11/21 Unknown Rx QUEtiapine [SEROquel] 100 mg PO QHS 30 Days #30 tablet 08/11/21 Unknown Rx Sertraline [Zoloft] 25 mg PO QDAY 30 Days #30 tablet 08/11/21 Unknown Rx Folic Acid [Folvite] 1 mg PO QDAY 30 Days #30 tablet 09/03/21 Unknown Rx Mag Hydrox/Aluminum Hyd/Simeth 20 ml PO QID PRN #1 bottle 09/03/21 Unknown Rx [Maalox Advanced Suspension] Multivitamin with Folic Acid 400 mcg PO DAILY #30 tablet 09/03/21 Unknown Rx [Daily-Sam Tablet] Ondansetron [Zofran ODT TAB] 4 mg PO Q8HR PRN #20 tab.rapdis 09/03/21 Unknown Rx Pantoprazole [Protonix TAB] 40 mg PO QDAY #30 tablet 09/03/21 Unknown Rx Thiamine [Vitamin B-1] 100 mg PO QDAY 30 Days #30 tablet 09/03/21 Unknown Rx chlordiazePOXIDE [Librium] 1 dose PO DAILY #40 cap 09/03/21 Unknown Rx ED Medical Decision Making - Lab Data Result diagrams: 09/02/21 18:52 09/02/21 18:52 - Medical Decision Making Signout received from Dr. Sal Nagel the patient presented with symptoms of alcohol withdrawal but was found to be with alcohol intoxication. He received Ativan and became extremely somnolent. On repeat assessment at 5 AM, the patient remains with extreme somnolence. He will be discharged once clinically sober with prescription for Librium taper. Patient has been signed out to Dr. Augustin ED Disposition Clinical Impression: Acute alcohol intoxication, Esophagitis, Hypokalemia, Nausea & vomiting Disposition: HOME / SELF CARE / HOMELESS Condition: Stable Instructions: Esophagitis, Alcohol Intoxication, Nausea and Vomiting, Adult Additional Instructions: You have been provided medication to aid with alcohol withdrawal symptoms. If you are unable to take the medication it is important that you do not quit alcohol cold turkey because you will develop withdrawal symptoms. You are encouraged to follow-up with outpatient detox resources provided SUBSTANCE ABUSE PROGRAMS: [facility]: Location: [place], [place]! Address: [address] [place] [address] [facility]: Address: [address] [place] [address] [facility]: Address: [address] [place] [address] [facility]: Address: [address] [place] [address] Professional and Agency Contacts To help [facility] (12/03) [place] Crisis Line: Suicide Prevention Line: Crisis Text Line: Text START to 075741 Emergency: 911 Outpatient COMMUNITY Behavioral Health Resources: HUSSEIN: [facility] [address] [place], [place] [address] [facility] [address] [place] [address] Sunday thru Sunday - 8am - 5pm Call to schedule an assessment for mental health and substance abuse programs CHRISTIANNE: [facility] Address: [address] [place] [address] Sunday thru Sunday- 7am-2pm [facility] Address: [address] [place] [address] Sunday thru Sunday: 8:30AM-5PM Prescriptions: Multivitamin with Folic Acid [Daily-Sam Tablet] 400 mcg PO DAILY #30 tablet Folic Acid [Folvite] 1 mg PO QDAY 30 Days #30 tablet chlordiazePOXIDE [Librium] 1 dose PO DAILY #40 cap Mag Hydrox/Aluminum Hyd/Simeth [Maalox Advanced Suspension] 20 ml PO QID PRN #1 bottle PRN Reason: Indigestion Pantoprazole [Protonix TAB] 40 mg PO QDAY #30 tablet Thiamine [Vitamin B-1] 100 mg PO QDAY 30 Days #30 tablet Ondansetron [Zofran ODT TAB] 4 mg PO Q8HR PRN #20 tab.rapdis PRN Reason: Nausea And Vomiting Referrals: PRIMARY CARE, [Primary Care Provider[facility] <BENJI BRYANT - Last Filed: 09/03/21 21:25> ED Alcohol HPI - General Source: patient Mode of arrival: Ambulatory Limitations: No Limitations - History of Present Illness Initial Comments: 55-year-old male with a past medical history of alcohol abuse/dependence, GERD, and hypertension presents to the hospital requesting alcohol detox. Patient states he drinks about half a gallon of liquor daily with last drink this morning. History of alcohol withdrawal at seizures and tremors. Patient states he currently has nausea vomiting and generalized abdominal pain that is moderate and worse with palpation. He denies a known history of pancreatitis ED Review of Systems ROS: Stated complaint: ETOH Other details as noted in HPI Comment: All other systems reviewed and negative ED Past Medical Hx - Past Medical History Previous Medical History?: Yes Hx Hypertension: Yes Hx Congestive Heart Failure: No Hx Diabetes: No Hx Seizures: Yes Hx Asthma: No Hx COPD: No Additional medical history: alcohol abuse - Surgical History Past Surgical History?: No - Social History Smoking Status: Current Every Day Smoker Substance Use Type: Alcohol ED Physical Exam - General Limitations: No Limitations - Other Other exam information: General: No acute distress Head: Atraumatic Eyes: normal appearance ENT: Moist mucous membranes Neck: Normal appearance, no midline tenderness Chest: Clear to auscultation bilaterally CV: Regular rate and rhythm Abdomen: Soft, normal bowel sounds, generalized abdominal tenderness worse in the upper abdomen, nondistended, no rebound or guarding Back: Normal inspection Extremity: Normal inspection, full range of motion Neuro: Alert O x 3, no facial asymmetry, speech clear, no gross motor sensory deficit Psych: Appropriate behavior Skin: No rash, flush/red appearing skin ED Course Vital Signs 09/02/21 09/03/21 09/03/21 17:22 00:26 09:30 Temperature 98 F Pulse Rate 97 H 87 78 Respiratory 16 16 16 Rate Blood Pressure 136/71 Blood Pressure 128/86 106/74 [Left] O2 Sat by Pulse 97 98 Oximetry 09/03/21 09/03/21 09/03/21 09:34 10:00 10:30 Temperature Pulse Rate 68 80 Respiratory 20 19 16 Rate Blood Pressure 129/71 125/85 Blood Pressure [Left] O2 Sat by Pulse 97 96 96 Oximetry 09/03/21 09/03/21 09/03/21 11:00 11:30 12:00 Temperature Pulse Rate 63 71 65 Respiratory 22 21 17 Rate Blood Pressure 141/79 139/71 131/74 Blood Pressure [Left] O2 Sat by Pulse 93 95 95 Oximetry 09/03/21 13:01 Temperature Pulse Rate 65 Respiratory 16 Rate Blood Pressure 141/72 Blood Pressure [Left] O2 Sat by Pulse 94 Oximetry ED Medical Decision Making - Lab Data Result diagrams: 09/02/21 18:52 09/02/21 18:52 Lab Results 09/02/21 09/02/21 09/02/21 Range/Units 18:52 18:52 18:52 WBC 5.7 (4.5-11.0) K/mm3 RBC 4.59 (3.65-5.03) M/mm3 Hgb 12.9 (11.8-15.2) gm/dl Hct 40.5 (35.5-45.6) % MCV 88 (84-94) fl MCH 28 (28-32) pg MCHC 32 (32-34) % RDW 16.9 H (13.2-15.2) % Plt Count 187 (140-440) K/mm3 Lymph % (Auto) 35.3 H (13.4-35.0) % [place] % (Auto) 7.2 (0.0-7.3) % Eos % (Auto) 2.8 (0.0-4.3) % Baso % (Auto) 0.8 (0.0-1.8) % Lymph # (Auto) 2.0 (1.2-5.4) K/mm3 [place] # (Auto) 0.4 (0.0-0.8) K/mm3 Eos # (Auto) 0.2 (0.0-0.4) K/mm3 Baso # (Auto) 0.0 (0.0-0.1) K/mm3 Seg Neutrophils % 53.9 (40.0-70.0) % Seg Neutrophils # 3.1 (1.8-7.7) K/mm3 Sodium 144 (137-145) mmol/L Potassium 3.3 L (3.6-5.0) mmol/L Chloride 102.1 (98-107) mmol/L Carbon Dioxide 25 (22-30) mmol/L Anion Gap 20 mmol/L BUN 17 (9-20) mg/dL Creatinine 0.8 (0.8-1.3) mg/dL Estimated GFR > 60 ml/min BUN/Creatinine Ratio 21 % Glucose 111 H (75-100) mg/dL Calcium 9.2 (8.4-10.2) mg/dL Magnesium 1.70 (1.7-2.3) mg/dL Total Bilirubin 0.20 (0.1-1.2) mg/dL AST 85 H (5-40) units/L ALT 42 (7-56) units/L Alkaline Phosphatase 119 (35-129) units/L Total Protein 6.8 (6.3-8.2) g/dL Albumin 3.7 L (3.9-5) g/dL Albumin/Globulin Ratio 1.2 % Lipase 112 H (13-60) units/L Urine Color (Yellow) Urine Turbidity (Clear) Urine pH (5.0-7.0) Ur Specific [place] (1.003-1.030) Urine Protein (Negative) mg/dL Urine Glucose (UA) (Negative) mg/dL Urine Ketones (Negative) mg/dL Urine Blood (Negative) Urine Nitrite (Negative) Urine Bilirubin (Negative) Urine Urobilinogen (<2.0) mg/dL Ur Leukocyte Esterase (Negative) Urine WBC (Auto) (0.0-6.0) /HPF Urine RBC (Auto) (0.0-6.0) /HPF Urine Mucus /HPF Urine Opiates Screen Urine Methadone Screen Ur Barbiturates Screen Ur Phencyclidine Scrn Ur Amphetamines Screen U Benzodiazepines Scrn Urine Cocaine Screen U Marijuana (THC) Screen Drugs of Abuse Note Plasma/Serum Alcohol (0-0.07) % 09/02/21 09/02/21 09/02/21 Range/Units 19:59 Unknown Unknown WBC (4.5-11.0) K/mm3 RBC (3.65-5.03) M/mm3 Hgb (11.8-15.2) gm/dl Hct (35.5-45.6) % MCV (84-94) fl MCH (28-32) pg MCHC (32-34) % RDW (13.2-15.2) % Plt Count (140-440) K/mm3 Lymph % (Auto) (13.4-35.0) % [place] % (Auto) (0.0-7.3) % Eos % (Auto) (0.0-4.3) % Baso % (Auto) (0.0-1.8) % Lymph # (Auto) (1.2-5.4) K/mm3 [place] # (Auto) (0.0-0.8) K/mm3 Eos # (Auto) (0.0-0.4) K/mm3 Baso # (Auto) (0.0-0.1) K/mm3 Seg Neutrophils % (40.0-70.0) % Seg Neutrophils # (1.8-7.7) K/mm3 Sodium (137-145) mmol/L Potassium (3.6-5.0) mmol/L Chloride (98-107) mmol/L Carbon Dioxide (22-30) mmol/L Anion Gap mmol/L BUN (9-20) mg/dL Creatinine (0.8-1.3) mg/dL Estimated GFR ml/min BUN/Creatinine Ratio % Glucose (75-100) mg/dL Calcium (8.4-10.2) mg/dL Magnesium (1.7-2.3) mg/dL Total Bilirubin (0.1-1.2) mg/dL AST (5-40) units/L ALT (7-56) units/L Alkaline Phosphatase (35-129) units/L Total Protein (6.3-8.2) g/dL Albumin (3.9-5) g/dL Albumin/Globulin Ratio % Lipase (13-60) units/L Urine Color Yellow (Yellow) Urine Turbidity Clear (Clear) Urine pH 5.0 (5.0-7.0) Ur Specific [place] 1.024 (1.003-1.030) Urine Protein 30 mg/dl (Negative) mg/dL Urine Glucose (UA) Neg (Negative) mg/dL Urine Ketones Neg (Negative) mg/dL Urine Blood Neg (Negative) Urine Nitrite Neg (Negative) Urine Bilirubin Neg (Negative) Urine Urobilinogen 2.0 (<2.0) mg/dL Ur Leukocyte Esterase Neg (Negative) Urine WBC (Auto) 1.0 (0.0-6.0) /HPF Urine RBC (Auto) 4.0 (0.0-6.0) /HPF Urine Mucus 1+ /HPF Urine Opiates Screen Negative Urine Methadone Screen Negative Ur Barbiturates Screen Negative Ur Phencyclidine Scrn Negative Ur Amphetamines Screen Negative U Benzodiazepines Scrn Positive Urine Cocaine Screen Negative U Marijuana (THC) Screen Negative Drugs of Abuse Note Disclamer Plasma/Serum Alcohol 0.34 H (0-0.07) % - Radiology Data Radiology results: report reviewed CT ABDOMEN AND PELVIS WITH CONTRAST INDICATION / CLINICAL INFORMATION: abd pain, n,v, alcohol abuse. TECHNIQUE: Axial CT images were obtained through the abdomen and pelvis after 100 mL Omnipaque [address] scans at this location are performed using CT dose reduction for ALARA by means of automated exposure control. COMPARISON: CT dated 08/09/21 FINDINGS: LOWER CHEST: No significant abnormality. LIVER: Diffusely hypodense characteristic of fatty infiltration and unchanged. GALLBLADDER: No significant abnormality. BILE DUCTS: No significant abnormality. PANCREAS: No significant abnormality. SPLEEN: No significant abnormality. ADRENALS: No significant abnormality. RIGHT KIDNEY / URETER: No significant abnormality. LEFT KIDNEY / URETER: Small nonobstructing intrarenal stone is unchanged. STOMACH / SMALL BOWEL: Small sliding-type hernia with thickening and edema of the distal esophagus possibly related to esophagitis. COLON: No significant abnormality. APPENDIX: No significant abnormality. PERITONEUM: No free fluid. No free air. No fluid collection. LYMPH NODES: No significant adenopathy. AORTA / ARTERIES: Moderate atherosclerotic calcification without acute abnormality. IVC / VEINS: No significant abnormality. URINARY BLADDER: No significant abnormality. REPRODUCTIVE ORGANS: No significant abnormality. ADDITIONAL FINDINGS: None. SKELETAL SYSTEM: Left acetabular fixation hardware is unchanged. No acute osseous abnormality. IMPRESSION: 1. Small sliding-type hiatal hernia with probable esophagitis. Findings are similar to prior study. 2. Hepatic steatosis, unchanged. 3. Nonobstructive left nephrolithiasis, unchanged. - Medical Decision Making 55-year old male presents to the hospital because of alcohol detox p.o. presents with generalized abdominal pain with nausea and vomiting. CT results reviewed. Mild hypokalemia noted. Patient received ED treatment with improvement in symptoms. 'Pt is drowsy after receiving Ativan. He also had benzos in his urine prior to receiving ED dose of Ativan. pt endorses that his symptoms are due to alcohol withdrawal however, he has acute alcohol intoxication upon ED arrival. He is admitted in July for alcohol withdrawal symptoms after an extended stay in the ED and was referred for outpatient treatment. Patient also be presented here again in July and once again it was deferred to outpatient treatment. It does not appear patient has attempted to receive outpatient treatment he states he is homeless Patient will be prepped for discharge and provided outpatient resources for detox. Librium and prescription will be provided however, patient counseled about the importance of not quitting alcohol cold turkey pt may be discharged when clinically sober with steady gait. Critical Care Time: No Critical care attestation.: If time is entered above; I have spent that time in minutes in the direct care of this critically ill patient, excluding procedure time. ED Disposition Is pt being admited?: No Does the pt Need Aspirin: No
--- NOTE | 2021-09-02 23:53 | Cat Scan Report ---
CT ABDOMEN AND PELVIS WITH CONTRAST INDICATION / CLINICAL INFORMATION: abd pain, n,v, alcohol abuse. TECHNIQUE: Axial CT images were obtained through the abdomen and pelvis after 100 mL Omnipaque [address] scans at this location are performed using CT dose reduction for ALARA by means of automated exposure control. COMPARISON: CT dated 08/09/21 FINDINGS: LOWER CHEST: No significant abnormality. LIVER: Diffusely hypodense characteristic of fatty infiltration and unchanged. GALLBLADDER: No significant abnormality. BILE DUCTS: No significant abnormality. PANCREAS: No significant abnormality. SPLEEN: No significant abnormality. ADRENALS: No significant abnormality. RIGHT KIDNEY / URETER: No significant abnormality. LEFT KIDNEY / URETER: Small nonobstructing intrarenal stone is unchanged. STOMACH / SMALL BOWEL: Small sliding-type hernia with thickening and edema of the distal esophagus po ssibly related to esophagitis. COLON: No significant abnormality. APPENDIX: No significant abnormality. PERITONEUM: No free fluid. No free air. No fluid collection. LYMPH NODES: No significant adenopathy. AORTA / ARTERIES: Moderate atherosclerotic calcification without acute abnormality. IVC / VEINS: No significant abnormality. URINARY BLADDER: No significant abnormality. REPRODUCTIVE ORGANS: No significant abnormality. ADDITIONAL FINDINGS: None. SKELETAL SYSTEM: Left acetabular fixation hardware is unchanged. No acute osseous abnormality. IMPRESSION: 1. Small sliding-type hiatal hernia with probable esophagitis. Findings are similar to prior study. 2. Hepatic steatosis, unchanged. 3. Nonobstructive left nephrolithiasis, unchanged. Signer Name: Senait Maynard MD Signed: 09/02/2021 11:48 PM Workstation Name: [id number]
[2021-09-03] MEDS ORDERED: POTASSIUM CHLORIDE ER 20 MEQ TAB PO ONE (00:22)
[2021-09-03] MEDS ORDERED: LORazepam 2 MG/ML VIAL IV PRN ×2 (00:23)
--- NOTE | 2021-09-03 10:55 | Consultation ---
History of Present Illness - Reason for Consult Consult date: 09/03/21 Reason for consult: Alcohol Dependence - History of Present Psychiatric Illness The patient was seen today. He is a 55y/o male patient who is known to me from a previous visit. The patient is a/o x 3. He is slightly shaking. He says he drinks 1/2 gal of vodka daily. The patient says he's attempted rehab about 2 times. He says he was brought here by his preacher. He denies SI/HI or hallucinations of any kind. He denies any psych suicidal attempt or any past admits to a psychiatric hospital. PAST PSYCHIATRIC HISTORY: Diagnose: Depression, anxiety Suicide attempts or Self-harm behavior: Denies Prior psychiatric hospitalizations: Denies Substance Abuse history: Denies Previous psychiatric medications tried: seroquel, remeron Outpatient treatment: Unknown PAST MEDICAL HISTORY: unknown Family Psychiatric History: None reported or documented SOCIAL HISTORY Marital Status: Living Arrangements: Homeless Employment Status: Disabled Access to guns/weapons: Denies Education: History of Abuse: Denies Legal History: Denies REVIEW OF SYSTEMS Constitutional: Negative for weight loss ENT: Negative for stridor Respiratory: Negative for cough or hemoptysis All other systems reviewed and are negative MENTAL STATUS EXAMINATION General Appearance and Behavior: Age appropriate, good hygiene, wearing appropriate clothes. calm, cooperative. Polite Cooperation: Cooperative Psychomotor Behavior: Psychomotor normal Mood: okay Affect and affective range: restricted Thought Process: goal directed Thought Content: None Speech: normal tone and pace Suicidal Ideation: Denies Homicidal Ideation: Denies Hallucinations: Denies Delusions: None Impulse Control: Limited Insight and Judgment: Limited insight and poor judgment Memory: Limited Attention: distracted Orientation: a/o x 3 Assessment (1) Alcohol Dependence Treatment Plan Agree with [place] Continue home psych meds Sitter: per primary Medical: per primary Disposition: Do not recommend acute psychiatric inpatient treatment. The quality control assessor to give the patient all necessary outpatient resources including rehab programs The patient to abstain from alcohol use Will follow for med management. Thanks. Case staffed with Dr. Carpenter Medications and Allergies Allergies Allergy/AdvReac Type Severity Reaction Status Date / Time No Known Allergies Allergy Verified 08/09/21 10:48 Home Medications Medication Instructions Recorded Confirmed Last Taken Type Mirtazapine [Remeron 15mg TAB] 15 mg PO QHS 30 Days #30 tablet 08/11/21 Unknown Rx Nicotine [Habitrol] 21 mg TD QDAY 30 Days #30 patch 08/11/21 Unknown Rx QUEtiapine [SEROquel] 100 mg PO QHS 30 Days #30 tablet 08/11/21 Unknown Rx Sertraline [Zoloft] 25 mg PO QDAY 30 Days #30 tablet 08/11/21 Unknown Rx Folic Acid [Folvite] 1 mg PO QDAY 30 Days #30 tablet 09/03/21 Unknown Rx Mag Hydrox/Aluminum Hyd/Simeth 20 ml PO QID PRN #1 bottle 09/03/21 Unknown Rx [Maalox Advanced Suspension] Multivitamin with Folic Acid 400 mcg PO DAILY #30 tablet 09/03/21 Unknown Rx [Daily-Sam Tablet] Ondansetron [Zofran ODT TAB] 4 mg PO Q8HR PRN #20 tab.rapdis 09/03/21 Unknown Rx Pantoprazole [Protonix TAB] 40 mg PO QDAY #30 tablet 09/03/21 Unknown Rx Thiamine [Vitamin B-1] 100 mg PO QDAY 30 Days #30 tablet 09/03/21 Unknown Rx chlordiazePOXIDE [Librium] 1 dose PO DAILY #40 cap 09/03/21 Unknown Rx Active Meds: Active Medications Lorazepam (Lorazepam 2 Mg/Ml Vial) 2 mg IV Q1HR PRN PRN Reason: [facility] 8 Lorazepam (Lorazepam 2 Mg/Ml Vial) 4 mg IV Q1HR PRN PRN Reason: [facility] 16 Last Admin: 09/03/21 09:40 Dose: 4 mg Mental Status Exam - Vital signs Last Vital Signs Temp 98 F 09/02/21 17:22 Pulse 87 09/03/21 00:26 Resp 16 09/03/21 00:26 BP 106/74 09/03/21 00:26 Pulse Ox 98 09/03/21 00:26 Results Result Diagrams: 09/02/21 18:52 09/02/21 18:52 Abnormal lab results 09/02/21 09/02/21 09/02/21 Range/Units 18:52 18:52 18:52 RDW 16.9 H (13.2-15.2) % Lymph % (Auto) 35.3 H (13.4-35.0) % Potassium 3.3 L (3.6-5.0) mmol/L Glucose 111 H (75-100) mg/dL AST 85 H (5-40) units/L Albumin 3.7 L (3.9-5) g/dL Lipase 112 H (13-60) units/L Plasma/Serum Alcohol (0-0.07) % 09/02/21 Range/Units 19:59 RDW (13.2-15.2) % Lymph % (Auto) (13.4-35.0) % Potassium (3.6-5.0) mmol/L Glucose (75-100) mg/dL AST (5-40) units/L Albumin (3.9-5) g/dL Lipase (13-60) units/L Plasma/Serum Alcohol 0.34 H (0-0.07) % All other labs normal.
[2021-09-03 13:03] VITALS: BP 141/72
== END 2021-09-03 14:30 | disposition home or self-care (01) ==
LOC: ED 17:17
DX: F10.129 Alcohol abuse with intoxication, unspecified (principal); K20.90 Esophagitis, unspecified without bleeding; E87.6 Hypokalemia
CPT/HCPCS: 36415; 74177; 80053; 80307; 81001; 83690; 83735; 85025; 96365; 96366; 96375; 99284; J2060; J2405; J3411; J3490; J7030; Q9967; 80320; Q0162; G0480

== ENCOUNTER 2021-09-13 21:02 | Emergency (ER) | payer SELFPAY ==
[2021-09-13 21:23] VITALS: BP 142/110
[2021-09-13] MEDS ORDERED: LORazepam 2 MG/ML VIAL IV PRN ×3 (21:51)
--- NOTE | 2021-09-13 21:55 | Emergency Department Report ---
HPI - General Chief Complaint: Alcohol Time Seen by Provider: 09/13/21 21:31 - HPI HPI: Room 36 The patient is a 55-year-old male present with chief complaint of alcoholism. The patient states he has noticed swelling in bilateral hands for the past 3 d ays. Patient states he came to the emergency department for alcohol detox. Patient admits to consuming approximately 1/2 gallon of vodka every day last consuming earlier today. ED Past Medical Hx - Past Medical History Hx Hypertension: Yes Hx GERD: Yes Hx Seizures: Yes Additional medical history: alcohol abuse, peptic ulcer disease, - Surgical History Additional Surgical History: Left hip - Family History Family history: no significant - Social History Smoking Status: Heavy Tobacco Smoker (3 packs/day) Substance Use Type: None (Denies illicit drug use), Alcohol (1/2 gallon vodka daily) - Medications Home Medications: Home Medications Medication Instructions Recorded Confirmed Last Taken Type Mirtazapine [Remeron 15mg TAB] 15 mg PO QHS 30 Days #30 tablet 08/11/21 Unknown Rx Nicotine [Habitrol] 21 mg TD QDAY 30 Days #30 patch 08/11/21 Unknown Rx QUEtiapine [SEROquel] 100 mg PO QHS 30 Days #30 tablet 08/11/21 Unknown Rx Sertraline [Zoloft] 25 mg PO QDAY 30 Days #30 tablet 08/11/21 Unknown Rx Folic Acid [Folvite] 1 mg PO QDAY 30 Days #30 tablet 09/03/21 Unknown Rx Mag Hydrox/Aluminum Hyd/Simeth 20 ml PO QID PRN #1 bottle 09/03/21 Unknown Rx [Maalox Advanced Suspension] Multivitamin with Folic Acid 400 mcg PO DAILY #30 tablet 09/03/21 Unknown Rx [Daily-Sam Tablet] Ondansetron [Zofran ODT TAB] 4 mg PO Q8HR PRN #20 tab.rapdis 09/03/21 Unknown Rx Pantoprazole [Protonix TAB] 40 mg PO QDAY #30 tablet 09/03/21 Unknown Rx Thiamine [Vitamin B-1] 100 mg PO QDAY 30 Days #30 tablet 09/03/21 Unknown Rx chlordiazePOXIDE [Librium] 1 dose PO DAILY #40 cap 09/03/21 Unknown Rx ED Review of Systems ROS: Stated complaint: SWOLLEN HANDS Other details as noted in HPI Constitutional: no symptoms reported Eyes: denies: eye pain ENT: denies: throat pain Respiratory: no symptoms reported Cardiovascular: denies: chest pain Endocrine: no symptoms reported Gastrointestinal: denies: abdominal pain Genitourinary: denies: dysuria Musculoskeletal: denies: back pain Neurological: denies: headache Physical Exam - Physical Exam Vital Signs: Vital Signs 09/13/21 21:22 Temperature 98.9 F Pulse Rate 100 H Respiratory 12 Rate Blood Pressure 142/110 [Left] O2 Sat by Pulse 99 Oximetry Physical Exam: GENERAL: The patient is well-developed well-nourished male lying on stretcher not appearing to be in acute distress. [] HEENT: Normocephalic. Atraumatic. Extraocular motions are intact. Patient has moist mucous membranes. NECK: Supple. Trachea midline CHEST/LUNGS: Clear to auscultation. There is no respiratory distress noted. HEART/CARDIOVASCULAR: Regular. There is no tachycardia. There is no gallop rub or murmur. ABDOMEN: Abdomen is soft, nontender. Patient has normal bowel sounds. There is no abdominal distention. SKIN: There is no rash. There is trace to 1+ bilateral lower extremity pitting edema. There is no diaphoresis. NEURO: The patient is awake, alert, and oriented. The patient is cooperative. The patient has no focal neurologic deficits. The patient has normal speech. GCS 15. No tremulousness noted at this time MUSCULOSKELETAL: There is no evidence of acute injury. ED Course Vital Signs 09/13/21 21:22 Temperature 98.9 F Pulse Rate 100 H Respiratory 12 Rate Blood Pressure 142/110 [Left] O2 Sat by Pulse 99 Oximetry ED Medical Decision Making - Lab Data Result diagrams: 09/13/21 21:51 09/13/21 21:51 - Differential Diagnosis Alcoholism, hypoalbuminemia, peripheral edema Critical care attestation.: If time is entered above; I have spent that time in minutes in the direct care of this critically ill patient, excluding procedure time. ED Disposition Clinical Impression: Alcoholism Disposition: 07 LEFT AWOL/ELOPED Is pt being admited?: No Does the pt Need Aspirin: No Condition: Stable Referrals: PRIMARY CARE, [Primary Care Provider] - 3-5 Days
[2021-09-13 22:09] LABS: Eosinophils # (Auto) 0.2 K/mm3 (0.0-0.4); Eosinophils % (Auto) 3.9 % (0.0-4.3); Hematocrit 36.4 % (35.5-45.6); Hemoglobin 11.8 gm/dl (11.8-15.2); Lymphocytes # (Auto) 1.8 K/mm3 (1.2-5.4); Lymphocytes % (Auto) 43.4 % (13.4-35.0); Mean Corpuscular HGB Conc 33 % (32-34); Mean Corpuscular Volume 88 fl (84-94); Monocytes # (Auto) 0.5 K/mm3 (0.0-0.8); Monocytes % (Auto) 11.4 % (0.0-7.3); Red Blood Count 4.13 M/mm3 (3.65-5.03); Red Cell Distribution Width 17.3 % (13.2-15.2)
[2021-09-13 22:10] LABS: Platelet Count 255 K/mm3 (140-440)
[2021-09-13 22:21] LABS: INR 0.75 (0.87-1.13); Partial Thromboplastin Time 26.1 Sec. (24.2-36.6)
[2021-09-13 22:46] LABS: Alanine Aminotransferase 25 units/L (7-56); Albumin 3.5 g/dL (3.9-5); BUN/Creatinine Ratio 9; Blood Urea Nitrogen 8 mg/dL (9-20); Calcium 8.5 mg/dL (8.4-10.2); Hemolysis Index 13
[2021-09-13] MEDS ORDERED: THIAMINE 100 MG, FOLIC ACID 1 MG, MULTIPLE VITAMIN INJ, ADULT 10 ML in SODIUM CHLORIDE ... IV ONE (23:43)
[2021-09-14] MEDS ORDERED: POTASSIUM CHLORIDE ER 20 MEQ TAB PO ONE (11:10)
[2021-09-14] MEDS ORDERED: KETOROLAC 30 MG/1 ML INJ IV ONE (11:10)
--- NOTE | 2021-09-14 12:09 | Emergency Department Report ---
Blank Doc - Documentation Documentation: 1440-I had assumed care of this patient when I came in this morning. We are a waiting case management evaluation for alcohol detox. Clinically, patient does not meet medical criteria for admission. We will treat him symptomatically. If case management finds a place to place him, so be it. Otherwise, he will be discharged with outpatient resources. 1440-case management has said that they were in a meeting and will see the patient after the meeting. It is unclear why they have not seen the patient from this morning. Ultimately, the patient did not meet criteria for inpatient detox and was discharged.
[2021-09-15] MEDS ORDERED: MAGNESIUM OXIDE 400 MG TAB PO SCH (10:00)
== END 2021-09-14 12:30 | disposition left against medical advice (07) ==
LOC: ED 21:02
DX: F10.20 Alcohol dependence, uncomplicated (principal); M79.89 Other specified soft tissue disorders
CPT/HCPCS: 36415; 80053; 85025; 85610; 85730; 96365; 96366; 96375; 99283; J1885; J2060; J3411; J3490; J7030; 80320; Q0162; G0480

== ENCOUNTER 2021-11-04 23:43 | Emergency (ER) | payer MEDICAID ==
[2021-11-05 06:03] LABS: Basophils # (Auto) 0.1 K/mm3 (0.0-0.1); Basophils % (Auto) 1.3 % (0.0-1.8); Eosinophils # (Auto) 0.1 K/mm3 (0.0-0.4); Eosinophils % (Auto) 2.3 % (0.0-4.3); Hematocrit 42.6 % (35.5-45.6); Hemoglobin 14.2 gm/dl (11.8-15.2); Lymphocytes # (Auto) 2.1 K/mm3 (1.2-5.4); Lymphocytes % (Auto) 35.7 % (13.4-35.0); Mean Corpuscular HGB Conc 33 % (32-34); Mean Corpuscular Volume 87 fl (84-94); Monocytes # (Auto) 0.6 K/mm3 (0.0-0.8); Platelet Count 216 K/mm3 (140-440); Red Blood Count 4.88 M/mm3 (3.65-5.03); Red Cell Distribution Width 17.8 % (13.2-15.2)
[2021-11-05 06:08] LABS: Alanine Aminotransferase 22 units/L (7-56); BUN/Creatinine Ratio 13; Blood Urea Nitrogen 10 mg/dL (9-20); Calcium 8.5 mg/dL (8.4-10.2); Hemolysis Index 4
[2021-11-05 06:12] LABS: Bilirubin,Direct < 0.2 mg/dL (0-0.2)
--- NOTE | 2021-11-05 06:20 | Emergency Department Report ---
ED Abdominal Pain HPI - General Chief Complaint: Abdominal Pain Stated Complaint: ABDOMINAL PAIN Time Seen by Provider: 11/05/21 05:50 Source: patient, EMS Mode of arrival: Ambulatory Limitations: No Limitations - History of Present Illness Initial Comments: 56-year-old male was emerge department complaining of a few day history of burning on urination with increased urinary urgency of unknown etiology. He reports no nausea vomiting or or diarrhea. No fever, chills, sweats. MD Complaint: abdominal pain -: Gradual Location: diffuse, suprapubic Radiation: none Migration to: no migration Severity: mild Quality: burning (Upon urination) Consistency: constant Improves With: nothing Worsens With: nothing Associated Symptoms: dysuria. denies: nausea, vomiting, constipation, hematemesis - Related Data Previous Rx's Medication Instructions Recorded Last Taken Type Mirtazapine [Remeron 15mg TAB] 15 mg PO QHS 30 Days #30 tablet 08/11/21 Unknown Rx Nicotine [Habitrol] 21 mg TD QDAY 30 Days #30 patch 08/11/21 Unknown Rx QUEtiapine [SEROquel] 100 mg PO QHS 30 Days #30 tablet 08/11/21 Unknown Rx Sertraline [Zoloft] 25 mg PO QDAY 30 Days #30 tablet 08/11/21 Unknown Rx Folic Acid [Folvite] 1 mg PO QDAY 30 Days #30 tablet 09/03/21 Unknown Rx Mag Hydrox/Aluminum Hyd/Simeth 20 ml PO QID PRN #1 bottle 09/03/21 Unknown Rx [Maalox Advanced Suspension] Multivitamin with Folic Acid 400 mcg PO DAILY #30 tablet 09/03/21 Unknown Rx [Daily-Sam Tablet] Ondansetron [Zofran ODT TAB] 4 mg PO Q8HR PRN #20 tab.rapdis 09/03/21 Unknown Rx Pantoprazole [Protonix TAB] 40 mg PO QDAY #30 tablet 09/03/21 Unknown Rx Thiamine [Vitamin B-1] 100 mg PO QDAY 30 Days #30 tablet 09/03/21 Unknown Rx chlordiazePOXIDE [Librium] 1 dose PO DAILY #40 cap 09/03/21 Unknown Rx Nitrofurantoin [place]/M-Cryst 100 mg PO Q12HR #20 capsule 11/05/21 Unknown Rx [Macrobid CAP] Phenazopyridine [Pyridium] 200 mg PO TID #9 tab 11/05/21 Unknown Rx Allergies Allergy/AdvReac Type Severity Reaction Status Date / Time No Known Allergies Allergy Verified 11/04/21 23:48 ED Review of Systems ROS: Stated complaint: ABDOMINAL PAIN Other details as noted in HPI Comment: All other systems reviewed and negative Constitutional: denies: chills, fever Eyes: denies: eye pain, eye discharge, vision change ENT: denies: ear pain, throat pain Respiratory: denies: cough, shortness of breath, wheezing Cardiovascular: denies: chest pain, palpitations Endocrine: no symptoms reported Gastrointestinal: abdominal pain. denies: diarrhea Genitourinary: denies: urgency, dysuria Musculoskeletal: denies: back pain, joint swelling, arthralgia Skin: denies: rash, lesions Neurological: denies: headache, weakness, paresthesias Psychiatric: denies: anxiety, depression Hematological/Lymphatic: denies: easy bleeding, easy bruising ED Past Medical Hx - Past Medical History Previous Medical History?: Yes Hx Hypertension: Yes Hx Congestive Heart Failure: No Hx Diabetes: No Hx GERD: Yes Hx Seizures: Yes Hx Asthma: No Hx COPD: No Additional medical history: alcohol abuse, peptic ulcer disease, - Surgical History Past Surgical History?: Yes Additional Surgical History: Left hip - Social History Smoking Status: Heavy Tobacco Smoker (3 packs/day) Substance Use Type: None (Denies illicit drug use), Alcohol (1/2 gallon vodka daily) - Medications Home Medications: Home Medications Medication Instructions Recorded Confirmed Last Taken Type Mirtazapine [Remeron 15mg TAB] 15 mg PO QHS 30 Days #30 tablet 08/11/21 Unknown Rx Nicotine [Habitrol] 21 mg TD QDAY 30 Days #30 patch 08/11/21 Unknown Rx QUEtiapine [SEROquel] 100 mg PO QHS 30 Days #30 tablet 08/11/21 Unknown Rx Sertraline [Zoloft] 25 mg PO QDAY 30 Days #30 tablet 08/11/21 Unknown Rx Folic Acid [Folvite] 1 mg PO QDAY 30 Days #30 tablet 09/03/21 Unknown Rx Mag Hydrox/Aluminum Hyd/Simeth 20 ml PO QID PRN #1 bottle 09/03/21 Unknown Rx [Maalox Advanced Suspension] Multivitamin with Folic Acid 400 mcg PO DAILY #30 tablet 09/03/21 Unknown Rx [Daily-Sam Tablet] Ondansetron [Zofran ODT TAB] 4 mg PO Q8HR PRN #20 tab.rapdis 09/03/21 Unknown Rx Pantoprazole [Protonix TAB] 40 mg PO QDAY #30 tablet 09/03/21 Unknown Rx Thiamine [Vitamin B-1] 100 mg PO QDAY 30 Days #30 tablet 09/03/21 Unknown Rx chlordiazePOXIDE [Librium] 1 dose PO DAILY #40 cap 09/03/21 Unknown Rx Nitrofurantoin [place]/M-Cryst 100 mg PO Q12HR #20 capsule 11/05/21 Unknown Rx [Macrobid CAP] Phenazopyridine [Pyridium] 200 mg PO TID #9 tab 11/05/21 Unknown Rx ED Physical Exam - General Limitations: No Limitations General appearance: alert, in no apparent distress - Head Head exam: Present: atraumatic, normocephalic - Eye Eye exam: Present: normal appearance - ENT ENT exam: Present: mucous membranes moist - Neck Neck exam: Present: normal inspection - Respiratory Respiratory exam: Present: normal lung sounds bilaterally. Absent: respiratory distress - Cardiovascular Cardiovascular Exam: Present: regular rate, normal rhythm. Absent: systolic murmur, diastolic murmur, rubs, gallop - GI/Abdominal GI/Abdominal exam: Present: soft, normal bowel sounds - Rectal Rectal exam: Present: deferred - Extremities Exam Extremities exam: Present: normal inspection - Back Exam Back exam: Present: normal inspection - Neurological Exam Neurological exam: Present: alert, oriented X3 - Psychiatric Psychiatric exam: Present: normal affect, normal mood - Skin Skin exam: Present: warm, dry, intact, normal color. Absent: rash ED Course Vital Signs 11/04/21 11/05/21 23:46 06:50 Temperature 97.5 F L Pulse Rate 107 H 105 H Respiratory 18 14 Rate Blood Pressure 157/104 134/87 [Left] O2 Sat by Pulse 94 96 Oximetry ED Medical Decision Making - Lab Data Result diagrams: 11/05/21 05:25 11/05/21 05:25 Critical care attestation.: If time is entered above; I have spent that time in minutes in the direct care of this critically ill patient, excluding procedure time. ED Disposition Clinical Impression: UTI (urinary tract infection), Abdominal pain Disposition: 01 HOME / SELF CARE / HOMELESS Is pt being admited?: No Does the pt Need Aspirin: No Condition: Stable Instructions: Urinalysis Test, Urinary Tract Infection, Adult, Urodynamic Testing, [id number] Prescriptions: Nitrofurantoin [place]/M-Cryst [Macrobid CAP] 100 mg PO Q12HR #20 capsule Phenazopyridine [Pyridium] 200 mg PO TID #9 tab Referrals: GRIFFIN GARCIA MD [Primary Care Provider] - 3-5 Days
[2021-11-05 06:51] VITALS: BP 134/87
== END 2021-11-05 06:53 | disposition home or self-care (01) ==
LOC: ED 23:43
DX: N39.0 Urinary tract infection, site not specified (principal); R10.9 Unspecified abdominal pain; I10 Essential (primary) hypertension; F17.200 Nicotine dependence, unspecified, uncomplicated
CPT/HCPCS: 36415; 80048; 80076; 83690; 85025; 99283

== ENCOUNTER 2021-11-07 07:04 | Emergency (ER) | payer MEDICAID ==
[2021-11-07] MEDS ORDERED: DICYCLOMINE 10 MG/5 ML ORAL LIQD PO ONE (12:49)
[2021-11-07] MEDS ORDERED: ALUM-MAG HYDROXIDE-SIMETHICONE 200-200-20MG/5ML ORAL LIQD 30 ML PO ONE (12:50)
[2021-11-07] MEDS ORDERED: LIDOCAINE VISCOUS 2% 15 ML ORAL LIQD PO ONE (12:50)
[2021-11-07] MEDS ORDERED: LIDOCAINE-MPF (1%) 10 MG/1 ML VIAL 5 ML INFILTRATI ONE (12:50)
--- NOTE | 2021-11-07 12:52 | Emergency Department Report ---
ED Abdominal Pain HPI - General Chief Complaint: Abdominal Pain Stated Complaint: ABD PAIN Time Seen by Provider: 11/07/21 12:49 Source: family Mode of arrival: Ambulatory Limitations: No Limitations - History of Present Illness Initial Comments: 56-year-old white male with a past medical history of GERD and hypertension presents to the emergency department for evaluation of abdominal pain. He states that he has had abdominal pain for several days, and was seen here for the same type of abdominal pain 2 to 3 days ago. He states that he was diagnos ed with a UTI then but has not taken his antibiotics as prescribed. He states that he has had some nausea with the abdominal pain but he denies fever, vomiting, diarrhea, or penile discharge. He states that he knows exactly why he is having pain and it is because he has not been able to afford his reflux medication. He also complains of generalized aches and pains all over. MD Complaint: abdominal pain -: Gradual, week(s) Location: diffuse (1) Radiation: none Migration to: no migration Severity scale (0 -10): 7 Quality: burning Consistency: constant Improves With: nothing Worsens With: nothing Associated Symptoms: nausea. denies: vomiting, diarrhea, fever, chills, dysuria, hematemesis, hematochezia, melena, hematuria, anorexia, syncope - Related Data Previous Rx's Medication Instructions Recorded Last Taken Type Mirtazapine [Remeron 15mg TAB] 15 mg PO QHS 30 Days #30 tablet 08/11/21 Unknown Rx Nicotine [Habitrol] 21 mg TD QDAY 30 Days #30 patch 08/11/21 Unknown Rx QUEtiapine [SEROquel] 100 mg PO QHS 30 Days #30 tablet 08/11/21 Unknown Rx Sertraline [Zoloft] 25 mg PO QDAY 30 Days #30 tablet 08/11/21 Unknown Rx Folic Acid [Folvite] 1 mg PO QDAY 30 Days #30 tablet 09/03/21 Unknown Rx Mag Hydrox/Aluminum Hyd/Simeth 20 ml PO QID PRN #1 bottle 09/03/21 Unknown Rx [Maalox Advanced Suspension] Multivitamin with Folic Acid 400 mcg PO DAILY #30 tablet 09/03/21 Unknown Rx [Daily-Sam Tablet] Ondansetron [Zofran ODT TAB] 4 mg PO Q8HR PRN #20 tab.rapdis 09/03/21 Unknown Rx Pantoprazole [Protonix TAB] 40 mg PO QDAY #30 tablet 09/03/21 Unknown Rx Thiamine [Vitamin B-1] 100 mg PO QDAY 30 Days #30 tablet 09/03/21 Unknown Rx chlordiazePOXIDE [Librium] 1 dose PO DAILY #40 cap 09/03/21 Unknown Rx Nitrofurantoin [place]/M-Cryst 100 mg PO Q12HR #20 capsule 11/05/21 Unknown Rx [Macrobid CAP] Phenazopyridine [Pyridium] 200 mg PO TID #9 tab 11/05/21 Unknown Rx Allergies Allergy/AdvReac Type Severity Reaction Status Date / Time No Known Allergies Allergy Verified 11/04/21 23:48 ED Review of Systems ROS: Stated complaint: ABD PAIN Other details as noted in HPI Comment: All other systems reviewed and negative Respiratory: denies: cough, shortness of breath Cardiovascular: denies: chest pain, palpitations, dyspnea on exertion, orthopnea, edema Gastrointestinal: abdominal pain, nausea. denies: vomiting, diarrhea, hematemesis, melena, hematochezia Genitourinary: denies: urgency, dysuria, frequency, hematuria, discharge, testicular pain Musculoskeletal: denies: back pain Skin: denies: rash, lesions Neurological: denies: headache, weakness ED Past Medical Hx - Past Medical History Hx Hypertension: Yes Hx Congestive Heart Failure: No Hx Diabetes: No Hx GERD: Yes Hx Seizures: Yes Hx Asthma: No Hx COPD: No Additional medical history: alcohol abuse, peptic ulcer disease, - Surgical History Additional Surgical History: Left hip - Social History Smoking Status: Heavy Tobacco Smoker (3 packs/day) Substance Use Type: None (Denies illicit drug use), Alcohol (1/2 gallon vodka daily) - Medications Home Medications: Home Medications Medication Instructions Recorded Confirmed Last Taken Type Mirtazapine [Remeron 15mg TAB] 15 mg PO QHS 30 Days #30 tablet 08/11/21 Unknown Rx Nicotine [Habitrol] 21 mg TD QDAY 30 Days #30 patch 08/11/21 Unknown Rx QUEtiapine [SEROquel] 100 mg PO QHS 30 Days #30 tablet 08/11/21 Unknown Rx Sertraline [Zoloft] 25 mg PO QDAY 30 Days #30 tablet 08/11/21 Unknown Rx Folic Acid [Folvite] 1 mg PO QDAY 30 Days #30 tablet 09/03/21 Unknown Rx Mag Hydrox/Aluminum Hyd/Simeth 20 ml PO QID PRN #1 bottle 09/03/21 Unknown Rx [Maalox Advanced Suspension] Multivitamin with Folic Acid 400 mcg PO DAILY #30 tablet 09/03/21 Unknown Rx [Daily-Sam Tablet] Ondansetron [Zofran ODT TAB] 4 mg PO Q8HR PRN #20 tab.rapdis 09/03/21 Unknown Rx Pantoprazole [Protonix TAB] 40 mg PO QDAY #30 tablet 09/03/21 Unknown Rx Thiamine [Vitamin B-1] 100 mg PO QDAY 30 Days #30 tablet 09/03/21 Unknown Rx chlordiazePOXIDE [Librium] 1 dose PO DAILY #40 cap 09/03/21 Unknown Rx Nitrofurantoin [place]/M-Cryst 100 mg PO Q12HR #20 capsule 11/05/21 Unknown Rx [Macrobid CAP] Phenazopyridine [Pyridium] 200 mg PO TID #9 tab 11/05/21 Unknown Rx ED Physical Exam - General Limitations: No Limitations General appearance: alert, in no apparent distress - Head Head exam: Present: atraumatic, normocephalic - Eye Eye exam: Present: normal appearance. Absent: conjunctival injection - Neck Neck exam: Present: normal inspection. Absent: tenderness, full ROM, lymphadenopathy - Respiratory Respiratory exam: Present: normal lung sounds bilaterally. Absent: respiratory distress, wheezes, rales, rhonchi, stridor, chest wall tenderness - Cardiovascular Cardiovascular Exam: Present: regular rate, normal heart sounds - GI/Abdominal GI/Abdominal exam: Present: soft, normal bowel sounds. Absent: distended, tenderness, guarding, rebound, rigid - Back Exam Back exam: Present: normal inspection. Absent: tenderness, CVA tenderness (R), CVA tenderness (L) - Neurological Exam Neurological exam: Present: alert, oriented X3 - Psychiatric Psychiatric exam: Present: normal affect, normal mood - Skin Skin exam: Present: warm, dry, intact, normal color ED Course Vital Signs 11/07/21 11/07/21 11/07/21 07:27 13:15 13:23 Temperature 97.6 F 98.4 F 98.8 F Pulse Rate 94 H 69 69 Respiratory 16 18 18 Rate Blood Pressure 128/86 149/95 149/90 [Left] O2 Sat by Pulse 96 99 99 Oximetry ED Medical Decision Making - Medical Decision Making 56-year-old white male with a past medical history of GERD and hypertension presents to the emergency department for evaluation of abdominal pain. He states that he has had abdominal pain for several days, and was seen here for the same type of abdominal pain 2 to 3 days ago. He states that he was diagnosed with a UTI then but has not taken his antibiotics as prescribed. He states that he has had some nausea with the abdominal pain but he denies fever, vomiting, diarrhea, or penile discharge. He states that he knows exactly why he is having pain and it is because he has not been able to afford his reflux medication. He also complains of generalized aches and pains all over. Reviewed chart from 11/04, and patient did not have any acute abnormalities. Given that patient has same type of pain, stable vital signs, afebrile, and no tenderness noted on palpation to abdomen, will treat patient with GI cocktail and give him a one-time dose of Rocephin for UTI diagnosed on the that he did not take medications for. He is advised to get prescription filled and take medication as prescribed from previous visit and follow-up with primary care provider. He is advised to return to the emergency department for worsening symptoms or any concerning symptoms. Critical care attestation.: If time is entered above; I have spent that time in minutes in the direct care of this critically ill patient, excluding procedure time. ED Disposition Clinical Impression: GERD (gastroesophageal reflux disease) Qualifiers: Esophagitis presence: esophagitis presence not specified Qualified Code(s): K21.9 - Gastro-esophageal reflux disease without esophagitis Disposition: HOME / SELF CARE / HOMELESS Is pt being admited?: No Does the pt Need Aspirin: No Condition: Stable Instructions: Indigestion, [id number], Food Choices for Gastroesophageal Reflux Disease, Adult Additional Instructions: Fill and take antibiotics for UTI as prescribed a couple days ago. Follow-up with primary care provider. Referrals: [facility] [Outside] - 3-5 Days [facility] [Outside] - 3-5 Days Time of Disposition: 12:52
[2021-11-07 13:24] VITALS: BP 149/90
== END 2021-11-07 13:26 | disposition home or self-care (01) ==
LOC: ED 07:04
DX: K21.9 Gastro-esophageal reflux disease without esophagitis (principal); I10 Essential (primary) hypertension; R56.9 Unspecified convulsions; Z98.890 Other specified postprocedural states; F17.200 Nicotine dependence, unspecified, uncomplicated
CPT/HCPCS: 96372; 99282; J0696; J3490

== ENCOUNTER 2021-11-22 21:31 | Emergency (ER) | payer MEDICAID ==
[2021-11-22] MEDS ORDERED: SODIUM CHLORIDE 0.9% 1000 ML 1,000 ML IV ONE (21:44)
--- NOTE | 2021-11-22 21:51 | Emergency Department Report ---
HPI - General Chief Complaint: Alcohol Time Seen by Provider: 11/22/21 21:38 - HPI HPI: 56-year-old male arrives via EMS [place]. Has been drinking about half a case of beer for the last month trying to wean half a gallon of vodka a day. Reports he is vomiting about once a day and is trying to slowly wean himself off the alcohol. He denies fever chills shortness of breath. ED Past Medical Hx - Past Medical History Hx Hypertension: Yes Hx Congestive Heart Failure: No Hx Diabetes: No Hx GERD: Yes Hx Seizures: Yes Hx Asthma: No Hx COPD: No Additional medical history: alcohol abuse, peptic ulcer disease, - Surgical History Additional Surgical History: Left hip - Social History Smoking Status: Heavy Tobacco Smoker (3 packs/day) Substance Use Type: None (Denies illicit drug use), Alcohol (1/2 gallon vodka daily) - Medications Home Medications: Home Medications Medication Instructions Recorded Confirmed Last Taken Type Mirtazapine [Remeron 15mg TAB] 15 mg PO QHS 30 Days #30 tablet 08/11/21 Unknown Rx Nicotine [Habitrol] 21 mg TD QDAY 30 Days #30 patch 08/11/21 Unknown Rx QUEtiapine [SEROquel] 100 mg PO QHS 30 Days #30 tablet 08/11/21 Unknown Rx Sertraline [Zoloft] 25 mg PO QDAY 30 Days #30 tablet 08/11/21 Unknown Rx Folic Acid [Folvite] 1 mg PO QDAY 30 Days #30 tablet 09/03/21 Unknown Rx Mag Hydrox/Aluminum Hyd/Simeth 20 ml PO QID PRN #1 bottle 09/03/21 Unknown Rx [Maalox Advanced Suspension] Multivitamin with Folic Acid 400 mcg PO DAILY #30 tablet 09/03/21 Unknown Rx [Daily-Sam Tablet] Ondansetron [Zofran ODT TAB] 4 mg PO Q8HR PRN #20 tab.rapdis 09/03/21 Unknown Rx Pantoprazole [Protonix TAB] 40 mg PO QDAY #30 tablet 09/03/21 Unknown Rx Thiamine [Vitamin B-1] 100 mg PO QDAY 30 Days #30 tablet 09/03/21 Unknown Rx Nitrofurantoin [place]/M-Cryst 100 mg PO Q12HR #20 capsule 11/05/21 Unknown Rx [Macrobid CAP] Phenazopyridine [Pyridium] 200 mg PO TID #9 tab 11/05/21 Unknown Rx chlordiazePOXIDE [Librium] 4 dose PO Q6H PRN #40 cap 11/23/21 Unknown Rx ED Review of Systems ROS: Stated complaint: CHEST PAIN/ETOH Other details as noted in HPI Comment: All other systems reviewed and negative Physical Exam - Physical Exam Vital Signs: As charted by nursing Physical Exam: Insert physical Constitutional: General: He is not in acute distress. Appearance: He is not diaphoretic. HENT: Head: Normocephalic. Eyes: Pupils: Pupils are equal, round, and reactive to light. Neck: Musculoskeletal: Normal range of motion. Cardiovascular: Rate and Rhythm: Normal rate and regular rhythm. Pulses: Intact distal pulses. Heart sounds: Normal heart sounds. No murmur. Pulmonary: Effort: No respiratory distress. Breath sounds: No wheezing or rales. Chest: Chest wall: No tenderness. Abdominal: General: There is no distension. Palpations: There is no mass. Tenderness: There is no abdominal tenderness. There is no guarding or rebound. Musculoskeletal: Normal range of motion. Skin: General: Skin is warm and dry. Neurological: Mental Status: He is alert and oriented to person, place, and time. Psychiatric: Mood and Affect: Mood and affect normal. Cognition and Memory: Memory normal. Judgment: Judgment normal. He does not seem to be actively withdrawing from alcohol. ED Course - Reevaluation(s) Reevaluation #1: 11/23/21 05:07: We rehydrated the patient. He never slurred his words and he never act acutely intoxicated. We gave him a list of resources where he can go and try to rehab from alcoholism. We will discharge him with follow-up with the resources as needed. ED Medical Decision Making - Lab Data Result diagrams: 11/22/21 21:53 11/22/21 21:53 Critical care attestation.: If time is entered above; I have spent that time in minutes in the direct care of this critically ill patient, excluding procedure time. ED Disposition Clinical Impression: Acute alcohol intoxication, Alcohol intoxication Disposition: 01 HOME / SELF CARE / HOMELESS Is pt being admited?: No Does the pt Need Aspirin: No Condition: Fair Instructions: Binge-Drinking Information, Adult Prescriptions: chlordiazePOXIDE [Librium] 4 dose PO Q6H PRN #40 cap PRN Reason: Agitation Time of Disposition: 12:00
[2021-11-22 22:03] LABS: Basophils # (Auto) 0.1 K/mm3 (0.0-0.1); Eosinophils # (Auto) 0.2 K/mm3 (0.0-0.4); Eosinophils % (Auto) 3.3 % (0.0-4.3); Hematocrit 41.1 % (35.5-45.6); Hemoglobin 13.6 gm/dl (11.8-15.2); Lymphocytes % (Auto) 38.5 % (13.4-35.0); Mean Corpuscular HGB Conc 33 % (32-34); Mean Corpuscular Volume 89 fl (84-94); Monocytes # (Auto) 0.6 K/mm3 (0.0-0.8); Monocytes % (Auto) 11.6 % (0.0-7.3); Platelet Count 224 K/mm3 (140-440); Red Blood Count 4.65 M/mm3 (3.65-5.03); Red Cell Distribution Width 17.5 % (13.2-15.2)
--- NOTE | 2021-11-22 22:29 | XRay Report ---
CHEST 1 VIEW INDICATION / CLINICAL INFORMATION: Alcohol Intoxication. COMPARISON: 08/09/2021 FINDINGS: SUPPORT DEVICES: None. HEART / MEDIASTINUM: No significant abnormality. LUNGS / PLEURA: No significant pulmonary or pleural abnormality. No pneumothorax. ADDITIONAL FINDINGS: No significant additional findings. IMPRESSION: 1. No acute findings. Signer Name: Chevy Sánchez MD Signed: 11/22/2021 10:25 PM Workstation Name: [id number]
[2021-11-22 22:33] LABS: Alanine Aminotransferase 37 units/L (7-56); Albumin 3.9 g/dL (3.9-5); Blood Urea Nitrogen 6 mg/dL (9-20); Calcium 8.6 mg/dL (8.4-10.2); Hemolysis Index 3
[2021-11-22 22:34] LABS: BUN/Creatinine Ratio 10
[2021-11-22] MEDS ORDERED: THIAMINE 100 MG, FOLIC ACID 1 MG, MULTIPLE VITAMIN INJ, ADULT 10 ML in SODIUM CHLORIDE ... IV ONE (22:44)
[2021-11-23 00:22] LABS: Bilirubin,Urine NEG (Negative); Blood,Urine NEG (Negative); Color,Urine Colorless (Yellow); Protein,Urine <15 mg/dL mg/dL (Negative); RBC,Urine < 1.0 /HPF (0.0-6.0); Urobilinogen,Urine < 2.0 mg/dL (<2.0)
[2021-11-23 00:30] LABS: Amphetamine Screen,Urine PRESUMPTIVE NEGATIVE; Benzodiazepines Screen,Urine PRESUMPTIVE NEGATIVE; Cannabinoid Screen,Urine PRESUMPTIVE NEGATIVE; Cocaine Screen,Urine PRESUMPTIVE NEGATIVE; Methadone Screen,Urine PRESUMPTIVE NEGATIVE; Opiate Screen,Urine PRESUMPTIVE NEGATIVE
[2021-11-23 00:32] LABS: WBC,Urine < 1.0 /HPF (0.0-6.0)
[2021-11-23 06:27] VITALS: BP 129/70
== END 2021-11-23 06:27 | disposition home or self-care (01) ==
LOC: ED 21:31
DX: F10.129 Alcohol abuse with intoxication, unspecified (principal); I10 Essential (primary) hypertension; R56.9 Unspecified convulsions; K21.9 Gastro-esophageal reflux disease without esophagitis; Z98.890 Other specified postprocedural states; F17.200 Nicotine dependence, unspecified, uncomplicated
CPT/HCPCS: 36415; 71045; 80053; 80307; 81001; 83690; 83735; 85025; 96360; 99284; J3411; J3490; J7030; 80320; Q0162; G0480